=== PATIENT | female | born 1980 | race Caucasian/White ===

== ENCOUNTER → 2024-11-02 | Outpatient (CLI) | payer SELFPAY ==
--- NOTE | 2024-11-02 15:28 | BI_ITS ---
EXAM: SCRN MAMM (CAD)W/JENS BILAT DATE: 11/02/2024 CLINICAL HISTORY: F, Age 44 y/o , SCREENING Grandmother with breast cancer. BREAST CANCER RISK ASSESSMENT: Not assessed. TECHNIQUE: Bilateral screening digital breast tomosynthesis with 2D and 3D images. Computer aided detection. COMPARISON: Baseline examination. FINDINGS: TISSUE DENSITY: The breast tissue is extremely dense which lowers the sensitivity of mammography. Bilateral Breast Mammographic Findings: No significant masses, calcifications or other abnormalities are identified. BI/SCRN MAMM (CAD)W/JENS BILAT IMPRESSION: OVERALL FINAL ASSESSMENT: BIRADS 1 NEGATIVE RECOMMENDATION: Routine annual follow-up in 1 Year A letter with findings and recommendations will be mailed to the patient. Reading Location: [id number]
== END | disposition home or self-care (01) ==
PROVIDERS: PCP Family Medicine; Referring Provider Family Medicine; Visit Provider Family Medicine
DX: Z12.31 Encounter for screening mammogram for malignant neoplasm of breast (principal)
CPT/HCPCS: 77063; 77067

== ENCOUNTER 2024-12-15 07:00 | Day surgery (SDC) | payer SELFPAY ==
[2024-12-15] VITALS (8 sets, daily range): BP systolic 81–110; BP diastolic 45–75; PULSE 60–85; RESP 16–17; TEMP 36.1–36.3; O2SAT 98–100; BMI 21.7
--- OUTSIDE RECORDS SUMMARY | 2024-12-15 07:09 | XMS RPT_ITS | CCD ---
Author Organization [facility] Care Team Providers Care Salesperson Handbags Name Role Phone ALEX CANOI Attending Unavailabl e Unavailable Primary Care Provider Unavailabl e Rocky WATKINS, Cl Primary Care Provider Rocky WATKINS, Dr. [place] Primary Care Provider Rocky WATKINS, Dr. [place] Attending Provider [phone] Rocky WATKINS, Dr. [place] Referring Provider [phone] Hidalgo, Cl Referring Unavailable Robotham, Blanca Attending Unavailable Hidalgo, Cl Primary Care Unavailable Hidalgo, Cl Referring Unavailable Hidalgo, Cl Primary Care Unavailable Hidalgo, Cl Attending Unavailable HIDALGO, CL Attending Unavailable HIDALGO, CL Referring Unavailable HIDALGO, CL Primary Care Unavailable HIDALGO, CL Attending Unavailable HIDALGO, CL Referring Unavailable HIDALGO, CL Primary Care Unavailable HIDALGO, CL Attending Unavailable HIDALGO, CL Referring Unavailable HIDALGO, CL Primary Care Unavailable YEROPOLI, SEVASTI K Attending Unavailable HIDALGO, CL Primary Care Unavailable YEROPOLI, SEVASTI K Attending Unavailable HIDALGO, CL Primary Care Unavailable SHEETS, ANASTACIA Attending Unavailable HIDALGO, CL Primary Care Unavailable HIDALGO, CL Attending Unavailable HIDALGO, CL Referring Unavailable HIDALGO, CL Primary Care Unavailable Allergies Allergy Classification Reported Allergen(s) Allergy Type Date of Onset Reaction(s) Facility (4 sources) Sulfonamides (Antibiotic); Translations: [SULFA (SULFONAMIDE ANTIBIOTICS)] Propensity to adverse reactions to drug (disorder) 5 Rash [facility] Other [facility] (8 sources) Sulfonamides (Antibiotic) Drug Allergy 5 Hives, Rash [facility] Medications Current Medications Medication Drug Class(es) Dates Sig (Normalized) Sig (Original) doxycycline monohydrate 100 mg oral tablet (2 sources) Tetracycline-clas s Drug Start: 03-13-2024 End: 03-20-2024 take 1 tablet by mouth twice daily doxycycline monohydrate 100 mg tablet Take 1 tablet by mouth two times a day for 7 days. 14 tablet 03/13/2024 03/20/2024 Active Problems Problem Classification Problem Date Documented Date Episodic/Chronic Fracture of upper limb (1 source) Unspecified fracture of lower end of right humerus, initial encounter for closed fracture; Translations: [Elbow fracture, right] Onset: 03-13-2024 Episodic Genitourinary symptoms and ill-defined conditions (8 sources) Genuine stress incontinence; Translations: [Stress incontinence (female) (male)] Onset: 10-04-2024 10-02-2024 Chronic Menstrual disorders (1 source) Irregular periods; Translations: [Irregular menstruation, unspecified] 12-08-2024 Chronic Other female genital disorders (2 sources) Postcoital bleeding; Translations: [Postcoital and contact bleeding] 10-28-2024 Chronic Other female genital disorders (2 sources) Postcoital and contact bleeding; Translations: [Postcoital and contact bleeding] Onset: 10-28-2024 Chronic Other female genital disorders (2 sources) Disorder of uterine cervix; Translations: [Noninflammatory disorder of cervix uteri, unspecified] 10-28-2024 Episodic Other female genital disorders (1 source) Lump of cervix; Translations: [Other specified noninflammatory disorders of cervix uteri] 12-08-2024 Episodic Other female genital disorders (2 sources) Noninflammatory disorder of cervix uteri, unspecified; Translations: [Noninflammatory disorder of cervix uteri, unspecified] Onset: 10-28-2024 Episodic Other screening for suspected conditions (not mental disorders or infectious disease) (5 sources) Patient encounter status; Translations: [Encounter for screening mammogram for malignant neoplasm of breast] Onset: 10-28-2024 10-28-2024 Episodic Unclassified (2 sources) Surgical Consult; Translations: [Surgical Consult] Onset: 12-06-2024 Results Test Name Value Interpretation Reference Range Facility 36on 12-14-2024 36 Surgery scheduled . Sent Tracksmith message with all appts/info. Spoke w/ pt to confirm. [facility] 36on 12-13-2024 36 Spoke to pt, schedul ing in process. [facility] 36 Message released to patient as written. Patient's further questions if applicable: Patient returning call regarding surgery scheduling. Patient requesting call back. Please Advise Were all questions from office addressed or relayed to the patient from encounter: Yes [facility] 36 LMTC my direct line, will follow in surgery orders. [facility] 36on 12-08-2024 36 Surgery Orders just rec'd today from Dr. Castellanos. Pt is on my list for scheduling. Will contact pt for scheduling. [facility] 36 Name of caller: Mikayla Richardson Contact phone number: [phone] Relationship to Patient: patient Provider: Dr. Castellanos Practice: [facility] Chief Complaint/Reason for Call: Pt stated that at the appointment on 12/06/2024 the provider discussed surgery for a polypectomy. Pt is requesting a call back to schedule surgery. Please advise. Best time of day caller can be reached: Any Patient advised that office/PCP has 24-48 business hours to return their call: Yes [facility] Office Visiton 12-06-2024 Follow-up visit [id number] Emerald Richardson 1980 F Date Provider Department Center 12/06/2024 [id number] CASTELLANOS MG [facility] OB [facility] OB Offi Family History Problem Relation Age of Onset Stroke Paternal Grandfather Heart disease Maternal Grandfather Hypertension Maternal Grandfather Heart failure Father Hypertension Mother Thyroid disease Mother Other Other Comments: No family hx of MM. Family Status - Relation Status Age at Paternal Grandfather Maternal Grandfather Father Alive Mother Alive Other Level of Service:59549 NC OFFICE/OUTPATIENT ESTABLISHED LOW MDM 20 MIN Reason for Visit and Comments: Surgical Consult [868] [facility] Progress Noteon 12-06-2024 Progress Note Emerald Richardson 12/06/2024 44 y.o. Chief Complaint Patient presents with Surgical Consult Primary Care Physician: Cl Hidalgo MD HPI: Emerald Richardson is a 44 y.o. female presents for consult. Patient had well woman appt last month with Dr. Hebert. Reported irregular and postcoital bleeding. Found to have cervical mass on exam. Had AUB in the past. Last US 2020 showed 10cm uterus with 1cm intramural fibroid. Medical History[1] Surgical History[2] Family History[3] OB History Para Term AB Living 4 4 4 4 SAB IAB Ectopic Multiple Live Births 4 # Outcome Date GA Lbr Ravi/2nd Weight Sex Type Anes PTL Lv 4 Term 05/2006 40w0d F Vag-Spont JAIRON 3 Term 09/2004 40w0d M Vag-Spont JAIRON 2 Term 10/2002 39w0d F Vag-Spont JAIRON 1 Term 07/2001 39w0d M Vag-Spont JAIRON MEDICATIONS: Current Medications[4] ALLERGIES: Allergies as of 12/06/2024 - Reviewed 12/06/2024 Allergen Reaction Noted Sulfa antibiotics Hives and Rash 05/04/2015 REVIEW OF SYSTEMS Review of Systems Genitourinary: Positive for menstrual problem and vaginal bleeding. Negative for pelvic pain and vaginal discharge. PHYSICAL EXAMINATION: BP 97/62 Pulse 71 Wt 140 lb (63.5 kg) BMI 22.60 kg/m? Physical Exam Constitutional: General: She is not in acute distress. Appearance: Normal appearance. She is not ill-appearing, toxic-appearing or diaphoretic. HENT: Head: Normocephalic and atraumatic. Nose: Nose normal. Eyes: Extraocular Movements: Extraocular movements intact. Conjunctiva/sclera: Conjunctivae normal. Pupils: Pupils are equal, round, and reactive to light. Pulmonary: Effort: Pulmonary effort is normal. No respiratory distress. Chest: Breasts: Antwon Score is 5. Abdominal: Palpations: Abdomen is soft. Genitourinary: General: Normal vulva. Antwon stage (genital): 5. Labia: Right: No rash, tenderness, lesion or injury. Left: No rash, tenderness, lesion or injury. Urethra: No prolapse, urethral swelling or urethral lesion. Vagina: Normal. Cervix: No cervical motion tenderness. Musculoskeletal: Right lower leg: No edema. Left lower leg: No edema. Lymphadenopathy: Cervical: No cervical adenopathy. Upper Body: Right upper body: No supraclavicular or axillary adenopathy. Left upper body: No supraclavicular or axillary adenopathy. Skin: General: Skin is warm and dry. Coloration: Skin is not jaundiced. Neurological: General: No focal deficit present. Mental Status: She is alert and oriented to person, place, and time. Psychiatric: Mood and Affect: Mood normal. Behavior: Behavior normal. Thought Content: Thought content normal. Judgment: Judgment normal. ASSESSMENT: Diagnosis Plan 1. PCB (post coital bleeding) 2. Cervical mass PLAN: - Mass looks benign in appearance, suspect either cervical polyp or fibroid. Given size I recommended removal under anesthesia. We discussed pursing hysteroscopy at the same time to evaluate endometrial lining. Counseled on procedure and risks such as infection, bleeding, damage to visceral/vascular structures, and uterine perforation requiring conversion to more invasive procedure. All of her questions answered to the best of my ability [1] History reviewed. No pertinent past medical history. [2] Past Surgical History: Procedure Laterality Date ANKLE SURGERY Right 2020 [3] Family History Problem Relation Name Age of Onset Stroke Paternal Grandfather Heart disease Maternal Grandfather Hypertension Maternal Grandfather Heart failure Father Hypertension Mother Thyroid disease Mother Other (83871) Other No family hx of MM. [4] No current outpatient medications on file. No current facility-administered medications for this visit. Normal [facility] Progress Note A cake knocker was offe red to be present during her exam. The patient: declined Pt here for surgical consult for due to polyp. She is having abnormal bleeding. Normal [facility] Progress Noteon 11-10-2024 Progress Note Emerald Richardson 11/10/2024 44 y.o. Chief Complaint Patient presents with Procedure Cervical Bx HPI: HPI 44 y.o. here for cervical biopsy She has been having postcoital bleeding Menses are monthly but will have spotting starting 1 week prior 2024 pap and HPV negative Narrative & Impression History ------- Age: 41 LMP: 05/11/21 Day Of Cycle: 14 Hx Comments Non latex cover used. Uterus ------ Uterus: Present Position: Anteverted Size (cm) L: 10.42 W: 7 H: 5.9 Description: There is a hypoechoic mass in the uterine parenchyma. This most likely represents a fibroid. Myomas ------ Site L(cm) W(cm) D(cm) Location Posterior left body 0.93 1.01 0.72 Intramural Blood Flow RI PI Comments Endometrium Comment: The endometrial complex measures 10.14 mm. See comments below. Cervix ------ Multiple cervical cysts are noted. [place] No free fluid was visualized Right Ovary Status: Normal Size (cm) L: 3.1 W: 2.49 H: 1.63 Vol.(ml): 6.59 Left Ovary Status: Visualized Size (cm) L: 4.68 W: 2.93 H: 2.85 Vol.(ml): 20.46 Comment: The left ovary has a 2.36 x 1.82 x 2.19 cm cyst with a 1.27 x 1.11 x 1.19 cm daughter cyst. Comments -------- Dr. Hebert inserted a Unisem catheter through the cervical os. Sterile saline was injected under direct ultrasound visualization. The endometrial cavity distended well and revealed a normal appearing lining. The anterior wall = 5 mm, posterior wall = 4.5 mm. IMPRESSION: Impression During SIS, the endometrial cavity distended well and revealed a normal appearing lining. The anterior wall = 5 mm, posterior wall = 4.5 mm. Probable uterine fibroid. The left ovary has a 2.36 x 1.82 x 2.19 cm cyst with a 1.27 x 1.11 x 1.19 cm daughter cyst. Clinical correlation is recommended. The patient is scheduled to see Dr. Hebert following ultrasound. PMH: has no past medical history on file. PHYSICAL EXAM Vitals: 11/10/24 1009 BP: 92/60 Pulse: 73 Body mass index is 22.11 kg/m?. Physical Exam Constitutional: Appearance: Normal appearance. HENT: Head: Normocephalic and atraumatic. Pulmonary: Effort: Pulmonary effort is normal. Genitourinary: Neurological: Mental Status: She is alert and oriented to person, place, and time. Psychiatric: Mood and Affect: Mood normal. Behavior: Behavior normal. ASSESSMENT/PLAN Emerald was seen today for procedure. Diagnoses and all orders for this visit: Cervix abnormality (Primary) - Tissue exam Discussed polyp removal, will await path and then have consult with PLASTICS TOOLING ENGINEER aprylron Normal [facility] Progress Note ?A cake knocker was off ered to be present during her exam. The patient: Declined. Normal [facility] Progress Noteon 11-08-2024 Progress Note [facility] [place] [id number] [place] [address] Dept: [phone] Dept PHYSICAL THERAPY TREATMENT Pelvic Health Patient Name: Emerald Richardson : 1980 Date of Service: 11/08/2024 Referring Provider: Cl Hidalgo MD Visit #: 4 Diagnosis: Stress incontinence (female) (male) Mechanism of injury: Pt reports her UI has been gradual in the last couple of years. Pt notes running could cause UI. Gradual progression of UI with coughing/sneezing, running, jumping, mild urge UI. Pt denies pain with urination or BM or sexual activity Patient Preferences: Prabha Precautions/Red Flags: None Subjective Pt states things are going well and she is doing more Kegel's. Pt states she feels maybe less UI with less occurences. Nocturia: 0 x /night, day time frequency every 2 hours, but increased with bladder irritants/coffee Compliance with HEP: Yes Objective Objective measurements not taken today. Treatment Therapeutic Activity # of Activities: 4 Therapeutic Activity 1: diaphragmatic breathing 11/08/24: Pt is independent Activity 1 Comment: Pt to work on triggers Therapeutic Activity 2: PF Strengthening 11/08/24: Progressed to combination Kegel Activity 2 Comment: Progressed to Combination & Advanced Kegel's to improve co-ordination and response time of PF mm's, maximizing incorporation of slow & fast twitch mm fibers for improved function to reduce /eliminate UI. Verbal & written information provided with demonstration in clinic. Therapeutic Activity 3: Core re-educaitonal exercises 11/08/24 progressed Activity 3 Comment: Single Bridges PPT W/ single august, blue T-band hip ER. 3 x 10 reps performed in clinic today. updated med bridge Therapeutic Activity 4: Bladder ol-mnopfaid-sz to work on day time urinary urgency11/08/24 every 2 hours , but coffee is a bladder irritant Activity 4 Comment: 11/08/24 Pt feels her UI is more trigger related recently than activity. Home Exercise Program: Progressed home exercise program Assessment Skilled physical therapy interventions utilized to improve patient?s impairments and work towards established goals. Patient response to treatment: Pt is making progress with normalized bladder frequency, reducing UI with stressors, but having UI with triggers. Patient will benefit from continued physical therapy to address PF/bladder dysfunctions to eliminate UI and improve overall quality of life. The rationale for today?s treatment was explained to the patient. Verbal cues were provided for correct form with all exercises. Advised patient to continue with Home Exercise Program (HEP). Goals General/Ortho Patient will be independent with HEP. (Progressing) Start: 10/02/24 Expected End: 01/01/25 Patient will increase strength in core to 4/5 to be able to improve PF function to eliminate UI (Progressing) Start: 10/02/24 Expected End: 01/01/25 Pelvic Health Pt will reduce summary score on gender appropriate NIH-CPSI to 6/45 to improve patient's perceived quality of life (Progressing) Start: 10/02/24 Expected End: 01/01/25 Pt will reduce use of pads to 0 pads per day (Progressing) Start: 10/02/24 Expected End: 01/01/25 Pt will reduce urinary incontinence to complete elimination (Progressing) Start: 10/02/24 Expected End: 01/01/25 Plan Plan for next session: Progress Kegel and core exercises as tolerated. Pt to focus on advanced Kegel's, bladder re-training/trigger responses and core and follow up in 4 weeks on 12/06/24. Time Entry Total Treatment Time Start Time: 1451 Stop Time: 1519 Time Calculation (min): 28 min PT Therapeutic Procedures Time Entry Therapeutic Activity Time Entry: 28 Reyna Wright, PT [facility] 36on 11-04-2024 36 LM on for pt to c all back. Will send Tracksmith message. [facility] 36 ----- Message from Elizabeth Hebert MD sent at 11/04/2024 1:25 PM EDT ----- Patient is schedule for cervical biopsy in 2 weeks . the pap came back today and is negative. If she is able to come in next Friday at 10 oclock, please move her appointment to next week. Thanks! ----- Message ----- From: Epic Automated UserElizabeth Sent: 11/01/2024 2:11 PM EDT To: Elizabeth Hebert MD [facility] Breast imaging reportOrdered By: Marko Esquivel on 11-02-2024 Study report [facility] [address] [place] [address] SCRN MAMM (CAD)W/JENS BILAT MR#: [id number] Acct: [id number] Name: EMERALD RICHARDSON Rep #: [id number] : 1980 F 44 From: Jani Esquivel MD PCP: Dr. Cl Hidalgo MD Status: REG Noah HILL Study:SCRN MAMM (CAD)W/JENS BILAT Date of Exa m: 11/02/24 Exam# [id number] Ordering Dr: Ra hannah Hidalgo MD EXAM: SCRN MAMM (CAD)W/JENS BILAT DATE: 11/02/2024 CLINICAL HISTORY: F, Age 44 y/o , SCREENING Grandmother with breast cancer. BREAST CANCER RISK ASSESSMENT: Not assessed. TECHNIQUE: Bilateral screening digital breast tomosynthesis with 2D and 3D images. Computeraided detection. COMPARISON: Baseline examination. FINDINGS: TISSUE DENSITY: The breast tissue is extremely dense which lowers the sensitivity of mammography. Bilateral Breast Mammographic Findings: No significant masses, calcifications or other abnormalities are identified. BI/SCRN MAMM (CAD)W/JENS BILAT IMPRESSION: OVERALL FINAL ASSESSMENT: BIRADS 1 NEGATIVE RECOMMENDATION: Routine annual follow-up in 1 Year A letter with findings and recommendations will be mailed to the patient. Reading Location: [id number] CC: Dr. Cl Hidalgo MD ~ Automobile Parts Assembler: Signed [facility] SCRN MAMM (CAD)W/JENS BILATo n 11-02-2024 SCRN MAMM (CAD)W/JENS BILAT [facility] Services [address] [place] [address] SCRN MAMM (CAD)W/JENS BILAT MR#: [id number] Acct: [id number] Name: EMERALD RICHARDSON Rep #: [id number] : 1980 F 44 From: Marko booth MD PCP: Dr. Cl Hidalgo MD Status: REG CLI Study: SCRN MAMM (CAD)W/JENS BILAT Date of Exam: 10/21 09/14 Exam# [id number] Ordering Dr: Cl Hidalgo MD EXAM: SCRN MAMM (CAD)W/JENS BILAT DATE: 11/02/2024 CLINICAL HISTORY: F, Age 44 y/o , SCREENING Grandmother with breast cancer. BREAST CANCER RISK ASSESSMENT: Not assessed. TECHNIQUE: Bilateral screening digital breast tomosynthesis with 2D and 3D images. Computer aided detection. COMPARISON: Baseline examination. FINDINGS: TISSUE DENSITY: The breast tissue is extremely dense which lowers the sensitivity of mammography. Bilateral Breast Mammographic Findings: No significant masses, calcifications or other abnormalities are identified. BI/SCRN MAMM (CAD)W/JENS BILAT IMPRESSION: OVERALL FINAL ASSESSMENT: BIRADS 1 NEGATIVE RECOMMENDATION: Routine annual follow-up in 1 Year A letter with findings and recommendations will be mailed to the patient. Reading Location: [facility] CC: Dr. Cl Hidalgo MD Automobile Parts Assembler: Signed Normal [facility] Office Visiton 10-28-2024 Follow-up visit [id number] Emerald Richardson 1980 F Date Provider Department Center 10/28/2024 [id number] HEBERT K [facility] Offi Family History Problem Relation Age of Onset Stroke Paternal Grandfather Heart disease Maternal Grandfather Hypertension Maternal Grandfather Heart failure Father Hypertension Mother Thyroid disease Mother Other Other Comments: No family hx of MM. Family Status - Relation Status Age at Paternal Grandfather Maternal Grandfather Father Alive Mother Alive Other Level of Service:66741 NC INITIAL PREVENTIVE MEDICINE NEW PATIENT 40-64YRS Reason for Visit and Comments: Annual Exam [83] [facility] Progress Noteon 10-28-2024 Progress Note Emerald Richardson 10/28/2024 44 y.o. Primary Care Physician: Cl Hidalgo MD Chief Complaint Patient presents with Annual Exam HPI : Emerald Richardson is a 44 y.o. female here for annual exam Gynecologic History: Patient's last menstrual period was 10/18/2024 (exact date). Menses occur regular every 28-30 days. Flow is moderate, sometimes heavy flow. Intermenstrual bleeding: Yes- postcoital bleeding normal endometrium < 1 cm IM fibroid Plan was for colposcopy Dysmenorrhea: none Contraception: Condoms OB History Para Term AB Living 4 4 4 4 SAB IAB Ectopic Multiple Live Births 4 # Outcome Date GA Lbr Ravi/2nd Weight Sex Type Anes PTL Lv 4 Term 05/2006 40w0d F Vag-Spont JAIRON 3 Term 09/2004 40w0d M Vag-Spont JAIRON 2 Term 10/2002 39w0d F Vag-Spont JAIRON 1 Term 07/2001 39w0d M Vag-Spont JAIRON Preventative Health Testing: Date of Last Pap Smear: 02/2020 neg pap and HPV Abnormal Pap Smear History: none Date of Last Mammogram: scheduled Date of Last Colonoscopy: scheduled ray _ History reviewed. No pertinent past medical history. Past Surgical History: Procedure Laterality Date ANKLE SURGERY Right 2020 Family History Problem Relation Name Age of Onset Stroke Paternal Grandfather Heart disease Maternal Grandfather Hypertension Maternal Grandfather Heart failure Father Hypertension Mother Thyroid disease Mother Other ([id number]) Other No family hx of MM. Social History Socioeconomic History Marital status: Spouse name: Not on file Number of children: Not on file Years of education: Not on file Highest education level: Not on file Occupational History Not on file Tobacco Use Smoking status: Never Smokeless tobacco: Never Substance and Sexual Activity Alcohol use: Yes Alcohol/week: 2.0 standard drinks of alcohol Drug use: Not on file Sexual activity: Yes Partners: Male control/protection: Condom Male Other Topics Concern Not on file Social History Narrative Merged History Encounter Social Drivers of Health Financial Resource Strain: Low Risk (10/28/2024) Overall Financial Resource Strain (CARDIA) Difficulty of Paying Living Expenses: Not hard at all Food Insecurity: No Food Insecurity (10/28/2024) Hunger Vital Sign Worried About Running Out of Food in the Last Year: Never true Ran Out of Food in the Last Year: Never true Transportation Needs: No Transportation Needs (10/28/2024) PRAPARE - Transportation Lack of Transportation (Medical): No Lack of Transportation (Non-Medical): No Physical Activity: Sufficiently Active (10/28/2024) Exercise Vital Sign Days of Exercise per Week: 5 days Minutes of Exercise per Session: 30 min Stress: No Stress Concern Present (10/28/2024) [employer] [place] [employer] - Occupational Stress Questionnaire Feeling of Stress : Not at all Social Connections: Socially Integrated (10/28/2024) Social Connection and Isolation Panel [NHANES] Frequency of Communication with Friends and Family: More than three times a week Frequency of Social Gatherings with Friends and Family: More than three times a week Attends Sabianist Services: More than 4 times per year Active Member of Clubs or Organizations: Yes Attends Club or Organization Meetings: More than 4 times per year Marital Status: Intimate Partner Violence: Not on file Housing Stability: Low Risk (10/28/2024) Housing Stability Vital Sign Unable to Pay for Housing in the Last Year: No Number of Times Moved in the Last Year: 0 Homeless in the Last Year: No MEDICATIONS: No current outpatient medications on file. No current facility-administered medications for this visit. ALLERGIES: Allergies as of 10/28/2024 - Reviewed 10/28/2024 Allergen Reaction Noted Sulfa antibiotics Hives and Rash 05/04/2015 REVIEW OF SYSTEMS: CONSTIUTIONAL: No weight change or fatigue CV: No Chest Pain with Exertion, Palpitations, Syncope, Edema, Arrhythmia RESPIRATORY: No SOB or Cough, BREAST: No breast abnormalities or lumps GI: No Indigestion, Heartburn, Nausea, vomiting, Diarrhea, Constipation,Bloating or Bowel Changes; No Bloody Stools or melena : No Dysuria, Hematuria or Nocturia. No Urinary Incontinence or Vaginal Discharge, NEURO: No CVA, Migraines,Seizure Hx, or Limb Weakness DERM: No Rash, Itching, Mole Changes or Cancer PSYCH: No Depression, Homicidal thoughts,suicidal thoughts, or anxiety MUSCULOSKELETAL: No Arthralgia or Arthritis HEME and LYMPH :No Lymphoma, Von Willebrand's, Hemophillia or Bleeding History PHYSICAL EXAM: Vitals: 10/28/24 0822 BP: 96/64 Pulse: 81 Weight: 140 lb (63.5 kg) Height: 5' 4 (1.626 m) Body mass index is 24.03 kg/m?. 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 EXTERNAL GENITALIA: normal female structures (more content not included)... Normal [facility] Progress Note ?A cake knocker was off ered to be present during her exam. The patient: declined Normal [facility] Progress Noteon 10-11-2024 Progress Note [facility] AT [address] [place] [address] Dept: [phone] Dept PHYSICAL THERAPY TREATMENT Pelvic Health Patient Name: Emerald Richardson : 1980 Date of Service: 10/11/2024 Referring Provider: Cl Hidalgo MD Visit #: 3 Diagnosis: Stress incontinence (female) (male) Mechanism of injury: Pt reports her UI has been gradual in the last couple of years. Pt notes running could cause UI. Gradual progression of UI with coughing/sneezing, running, jumping, mild urge UI. Pt denies pain with urination or BM or sexual activity Patient Preferences: Prabha Precautions/Red Flags: None Subjective Pt reports challenged with completing Kegel's in sitting and standing, easier in supine. Compliance with HEP: Yes Objective Objective measurements not taken today. Treatment Therapeutic Activity # of Activities: 4 Therapeutic Activity 1: diaphragmatic breathing 10/11/24: verbal review Therapeutic Activity 2: PF Strengthening 10/11/24: Progressed to endurance Kegel starting with 5 seconds and progressing to a 10 second hold. Pt challenged with Kegel in sitting and standing Activity 2 Comment: Quick Kegel: to improve PF awareness, increase blood flow and re-educate Pelvic Floor muscles for isloated contraction. Therapeutic Activity 3: Core re-educaitonal exercises Activity 3 Comment: Bridges W/ O UE support, PPT W/ TrA activation, Green T-band hip ER. 3 x 10 reps performed in clinic today.Discussed rational and importance of HEP for program carryover and maximal benefit of rehab. Patient demonstrated exercises to ensure proper technique and clinician provided verbal and written information. Exercises inputted into Med. Tim. Therapeutic Activity 4: Bladder [id number] to work on day time urinary urgency 10/11/24 working on 2 hours, but coffe and tea are bladder irritants Home Exercise Program: Progressed home exercise program Assessment Skilled physical therapy interventions utilized to improve patient?s impairments and work towards established goals. Patient response to treatment: Patient is making progress toward goals with compliance with HEP, reducing urinary frequency, increasing PF mm awareness. Pt still challenged with completing Kegel in sitting and standing. Pt able to demonstrate good TrA engagement with instructions. Pt appropriately challenged with exercises in clinic today Patient will benefit from continued physical therapy to address PF/bladder dysfunctions to eliminate stress UI and improve overall quality of life. The rationale for today?s treatment was explained to the patient. Verbal cues were provided for correct form with all exercises. Advised patient to continue with Home Exercise Program (HEP). Goals General/Ortho Patient will be independent with HEP. (Progressing) Start: 10/02/24 Expected End: 01/01/25 Patient will increase strength in core to 4/5 to be able to improve PF function to eliminate UI (Progressing) Start: 10/02/24 Expected End: 01/01/25 Pelvic Health Pt will reduce summary score on gender appropriate NIH-CPSI to 6/45 to improve patient's perceived quality of life (Progressing) Start: 10/02/24 Expected End: 01/01/25 Pt will reduce urinary frequency to voiding once every 2-4 hours each day to reduce disruptions to home and work activities (Progressing) Start: 10/02/24 Expected End: 01/01/25 Pt will reduce use of pads to 0 pads per day (Progressing) Start: 10/02/24 Expected End: 01/01/25 Pt will reduce urinary incontinence to complete elimination (Progressing) Start: 10/02/24 Expected End: 01/01/25 Plan Plan for next session: Progress Kegel & core exercises as tolerated. Pt to focus on endurance Kegel, core and bladder re-training principles and follow up in 3 weeks on 11/01/24 9:15 AM. Time Entry Total Treatment Time Start Time: 915 Reyna Wright, PT [facility] Progress Noteon 10-04-2024 Progress Note [facility] TH[facility]Y AT [place] [address] [place] [address] Dept: [phone] Dept PHYSICAL THERAPY TREATMENT Pelvic Health Patient Name: Emerald Richardson : 1980 Date of Service: 10/04/2024 Referring Provider: Cl Hidalgo MD Visit #: 2 Diagnosis: Stress incontinence (female) (male) Mechanism of injury: Pt reports her UI has been gradual in the last couple of years. Pt notes running could cause UI. Gradual progression of UI with coughing/sneezing, running, jumping, mild urge UI. Pt denies pain with urination or BM or sexual activity Patient Preferences: Prabha Precautions/Red Flags: None Subjective Pt working on urge suppression and notes able to hold better. Compliance with HEP: Yes Objective Pelvic Floor Assessment Special tests Skin observation: healthy & pink Vaginal Wall Weakness Anterior wall: mild Posterior wall: none Observations: with supine bulge activity Pelvic Floor Muscle testing Modified Laycock: Layer 1: 2/5 Layer 2: 2/5 Layer 3: 1/5 Endurance: 2 seconds Contraction quality: Fair: pt able to recruit all 3 PF mm layers, but moderate weakness with decreased strength & endurance noted. Relaxation quality: good Voluntary excursion quality: good Resting position: WNL Palpation Myofascial mobility: WNL Soft tissue: non tender ESTEBAN Tenderness 0-no tenderness 1-complaint of pain 2-Pain w/wincing 3-Pain w/ withdrawal 4- Unable to palpate Guarding 0-No guarding 1-Mild 2- Moderate 3-Severe Spasm 0-No spasm 1-Mild 2-Moderate 3-Severe Mobility 0-No change 1-Mild 2-Moderate 3-Severe Muscles/Soft tissue Left Right Left Right Left Right Left Right Bulbocavernosus 0 0 0 0 0 0 0 0 Coccygeus 0 0 0 0 0 0 0 0 Iliococcygeus 0 0 0 0 0 0 0 0 Ischiocavernosus 0 0 0 0 0 0 0 0 Levator Ani 0 0 0 0 0 0 0 0 Obturator Internus 0 0 0 0 0 0 0 0 Pelvic Clock 12-3 0 X X X X X X X Pelvic Clock 3-6 0 X X X X X X X Pelvic Clock 6-9 X 0 X X X X X X Pelvic Clock 9-12 X 0 X X X X X X Perineal body 0 0 X X X X 0 0 Pubococcygeus 0 0 0 0 0 0 0 0 Puborectalis 0 0 0 0 0 0 0 0 Transverse Perineal 0 0 0 0 0 0 0 0 Transverse Perineal- Deep 0 0 0 0 0 0 0 0 Bony Structures: 0 0 X X X X X X Treatment Therapeutic Activity # of Activities: 4 Therapeutic Activity 1: diaphragmatic breathing Activity 1 Comment: Diaphragmatic Breathing: Educated patient and discussed rational, use, indications and benefits to: reduce bladder anxiety, stretch/relax PF, reset vagal/ vagus nervous system, lower HR & BP and improve overall lung capacity. Verbal and written information provided with patient demonstration to ensure proper technique Therapeutic Activity 2: PF Strengthening ( add core strengthening next session) Activity 2 Comment: Quick Kegel: to improve PF awareness, increase blood flow and re-educate Pelvic Floor muscles for isloated contraction. Therapeutic Activity 3: Intenral PF mm assessment-10/04/24 completed. See objective section of notes Activity 3 Comment: Initiate next session:Pelvic Floor Assessment: Discussed rational, informed consent*, completion & findings explained. (*Consent for pelvic floor assessment, muscle testing and treatment: Patient received education regarding pelvic floor physical therapy assessment/treatment with use of 3D pelvic floor model for education on relevant pelvic floor anatomy. Assessment and treatment may include an external or internal (visual and/or digital/tactile) approach for assessment/treatment of perineal tissues, pelvic floor and pelvic girdle muscles. Patient provided freely given, reversible, informed, enthusiastic and specific consent for internal pelvic floor muscle assessment and treatment today. Patient understands that they have control of the assessment and treatment, having the opportunity to stop treatment at any time. Patient also provided written consent at initial evaluation. ) Therapeutic Activity 4: Bladder ne-[id number] to work on day time urinary urgency 10/04/24 verbal review and pt noted reduced urinary frequency with urge suppression techniques Activity 4 Comment: Bladder Re-training: Educated patient and discussed Night time strategies, urge suppression. Discussed it takes at least 8 weeks to form a new habit and/or break an old habit. Discussed it can take 8 weeks to re-train muscles and can take 16-20 weeks to hypertrophy muscles. Discussed bladder re-training is a process involving re-programing brain>bladder connections, strengthening PF muscles and habit changes. Pt with verbal understanding and acknowledgement. Verbal & written information provided. Home Exercise Program: Progressed home exercise program Assessment Skilled physical therapy interventions utilized to improve patient?s impairments and work towards established goals. Patient response (more content not included)... Normal [facility] Progress Noteon 10-02-2024 Progress Note [facility] AT [address] [place] [address] Dept: [phone] Dept PHYSICAL THERAPY EVALUATION Pelvic Health Patient Name: Emerald Richardson : 1980 Date of Service: 10/02/2024 Referring Provider: Cl Hidalgo MD Visit #: 1 Diagnosis: Stress incontinence (female) (male) General Information Mechanism of injury: Pt reports her UI has been gradual in the last couple of years. Pt notes running could cause UI. Gradual progression of UI with coughing/sneezing, running, jumping, mild urge UI. 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 PSHX: Emerald has no past surgical history on file. Have you experienced any anxiety or depression?: No Have you experienced thoughts of self-harm or suicidal thoughts?: No Social Drivers of Health Reviewed: Yes Physician follow-up appointment?: No Subjective Chief Complaint: UI Pain: Current: 0/10 Best: 0/10 Worst: 0/10 Symptoms Aggravated by: running, jumping, coughing , sneezing, urgency Symptoms Relieved by: stopping activity Prior Level of Function: Independent Current Level of Function: independent but limited d/t UI Patient?s Stated Goal: Eliminate UI Additional Specialty Information: PELVIC HEALTH Hx and sx : ; vaginal delivery Urinary Sx Incontinence: mixed a few drops Post-void dribble: No ?? Maybe sometimes Urgency: Yes Aggravating/alleviating factors: coughing/sneezing, jumping, running Voiding frequency: Every 1 hour Nocturia: No , 0/night Sensation of incomplete bladder emptying: Yes Pain associated with bladder and/or voiding: No Use of Protection: Type: panti liner Quantity: 1 x/ day Bowel sx Constipation: No Straining: No Fecal incontinence: No Dietary Water intake: 80+ fl oz/day Dietary irritants: Coffee: 16 oz/day, Tea-iced: 16 oz/day, Sparkling water: 16 oz/day or [place]ucha Questionnaire: NIH-CPSI: female Score: Objective Observations Functional mobility: Independent Ortho screen Posture Pelvic alignment: Pt demonstrating good pelvic alignment Lumbar ROM: WNL Hip ROM: WNL Palpation: Non tender external PF region LQ Strength L R HIP Flexion 5/5 5/5 Extension 5/5 5/5 Abduction 5/5 5/5 KNEE Flexion 5/5 5/5 Extension 5/5 5/5 ANKLE Dorsiflexion 5/5 5/5 Plantarflexion NT/5 NT/5 CORE 3/5- decreased TrA activation Flexibility: LEFT RIGHT Hip Adductors WNL WNL Hip External Rotators MILD MILD Iliopsoas WNL WNL Hamstrings MILD MILD Assessment Emerald is a 44 y.o. patient who presents to PT with a diagnosis of stress UI. Pt demonstrates PF/bladder dysfunctions, decreased core strength, contributing to UI, urinary urgency impairing function and reducing quality of life. . The patient would benefit from skilled physical therapy to address decreased strength, decreased range of motion, soft tissue impairment, impaired functional activities, and PF & bladder dysfunctions . Evaluation complexity is low secondary to: patient has 1-2 personal factors and/or comorbidities that will affect plan of care, therapy will be addressing 3 or more elements, and clinical presentation is evolving. Body Systems Affected: musculoskeletal and neuromuscular Rehab Potential: Good Learning Preferences: demonstration, explanation, performance, and printed materials Barriers to Rehab: chronicity and duration of symptoms Goals General/Ortho Patient will be independent with HEP. (Initiated) Start: 10/02/24 Expected End: 01/01/25 Patient will increase strength in core to 4/5 to be able to improve PF function to eliminate UI (Initiated) Start: 10/02/24 Expected End: 01/01/25 Pelvic Health Pt will reduce summary score on gender appropriate NIH-CPSI to 6/45 to improve patient's perceived quality of life (Initiated) Start: 10/02/24 Expected End: 01/01/25 Pt will reduce urinary frequency to voiding once every 2-4 hours each day to reduce disruptions to home and work activities (Initiated) Start: 10/02/24 Expected End: 01/01/25 Pt will reduce use of pads to 0 pads per day (Initiated) Start: 10/02/24 Expected End: 01/01/25 Pt will reduce urinary incontinence to complete elimination (Initiated) Start: 10/02/24 Expected End: 01/01/25 Plan Frequency and Duration: 1/wk for 12 weeks Therapeutic Contents: client education, home exercise program, manual therapy techniques, neuromuscular re-education, sensory re-education/desensitiza tion, therapeutic activities, modalities as needed, and bladder re-training Plan for next session: Complete internal PF mm assessment, progress Hep as tolerated and further education for optimal pelvic health Risks and (more content not included)... Normal [facility] CBC (H/H, RBC, INDICES, WBC, PLT)on 09-15-2024 Erythrocyte distribution width (RBC) [Ratio] 14.7 % Normal 11.0-15.0 [facility] Comment on above: Performed By: #### 1 069, 60661, 4520, 899 #### [facility] [address] Car Sales Associate: Emre Washington MD Hematocrit (Bld) [Volume fraction] 38.3 % Normal 35.0-45.0 [facility] Comment on above: Performed By: #### 1 879, 67558, 7600, 899 #### [facility] [address], [address] [place] [id number] Car Sales Associate: Emre Washington MD Hemoglobin (Bld) [Mass/Vol] 11.8 g/dL Normal 11.7-15.5 [facility] Comment on above: Performed By: #### 1 759, 61176, 7600, 899 #### [facility] of [place] [address] Car Sales Associate: Emre Washington MD MCH (RBC) [Entitic mass] 27.8 pg Normal 27.0-33.0 [facility] Comment on above: Performed By: #### 1 759, 10920, 0, 899 #### [facility] [place] [address] Car Sales Associate: Emre Washington MD MCHC (RBC) [Mass/Vol] 30.8 g/dL Low 32.0-36.0 [facility] Comment on above: Result Comment: For adults, a slight decrease in the calculated MCHC value (in the range of 30 to 32 g/dL) is most likely not clinically significant; however, it should be interpreted with caution in correlation with other red cell parameters and the patient's clinical condition. Performed By: #### 1 759, , 7599, 899 #### [facility] [place] [address] Car Sales Associate: Emre Washington MD MCV (RBC) [Entitic vol] 90.1 fL Normal 80.0-100.0 [facility] Comment on above: Performed By: #### 1 759, 11720, 7599, 899 #### [facility] [place] [address] Car Sales Associate: Emre Washington MD Platelet mean volume (Bld) [Entitic vol] 12.8 fL High 7.5-12.5 [facility] Comment on above: Performed By: #### 1 759, 68053, 7600, 899 #### [facility] [place] [address] Car Sales Associate: Emre Washington MD Platelets (Bld) [#/Vol] 206 10*3/uL Normal 140-400 [facility] Comment on above: Performed By: #### 1 759, 03331, 0, 899 #### [facility] of [address] [place] [address] Car Sales Associate: Emre Washington MD RBC (Bld) [#/Vol] 4.25 10*6/uL Normal 3.80-5.10 [facility] Comment on above: Performed By: #### 1 759, 26740, 7600, 899 #### [facility] of [address] , [address] [place] [address] Car Sales Associate: Emre Washington MD WBC (Bld) [#/Vol] 4.4 10*3/uL Normal 3.8-10.8 [facility] Comment on above: Performed By: #### 1 759, 82892, 7600, 899 #### [facility] of [address], [address] [place] [address] Car Sales Associate: Emre Washington MD [facility] 09-15-2024 Albumin [Mass/Vol] 4.1 g/dL Normal 3.6-5.1 [facility] Comment on above: Performed By: #### 1 759, 90510, 7600, 899 #### [facility] of [address], [address] [place] [address] Car Sales Associate: Emre Washington MD Albumin/Globulin [Mass ratio] 2.1 {ratio} Normal 1.0-2.5 [facility] Comment on above: Performed By: #### 1 759, 11851, 7600, 899 #### [facility] of [address], [address] [place] [address] Car Sales Associate: Emre Washington MD ALP [Catalytic activity/Vol] 38 U/L Normal 31-125 [facility] Comment on above: Performed By: #### 1 759, 95950, 7600, 899 #### [facility] of [place] [address] Car Sales Associate: Emre Washington MD ALT [Catalytic activity/Vol] 11 U/L Normal 6-29 [facility] Comment on above: Performed By: #### 1 759, 90917, 7600, 899 #### [facility] of [address], [address] [place] [address] Car Sales Associate: Emre Washington MD AST [Catalytic activity/Vol] 15 U/L Normal 10-35 [facility] Comment on above: Performed By: #### 1 759, 79780, 7600, 899 #### [facility] of [address], [address] [place] [address] Car Sales Associate: Emre Washington MD Bilirubin [Mass/Vol] 1.4 mg/dL High 0.2-1.2 [facility] Comment on above: Performed By: #### 1 759, 73432, 7600, 899 #### [facility] of [place] [address] Car Sales Associate: Emre Washington MD BUN/CREATININE RATIO SEE NOTE: Normal 6-22 [facility] Comment on above: Result Comment: Not Reported: BUN and Creatinine are within reference range. Performed By: #### 1 759, 82013, 7600, 899 #### [facility] of [address], [address] [place] [address] Car Sales Associate: Emre Washington MD Calcium [Mass/Vol] 8.9 mg/dL Normal 8.6-10.2 [facility] Comment on above: Performed By: #### 1 759, 70496, 7600, 899 #### [facility] of [place] [address] Car Sales Associate: Emre Washington MD Chloride [Moles/Vol] 108 mmol/L Normal 98-110 [facility] Comment on above: Performed By: #### 1 759, 03753, 7600, 899 #### [facility] of [place] [address] Car Sales Associate: Emer Washington MD CO2 [Moles/Vol] 25 mmol/L Normal 20-32 [facility] Comment on above: Performed By: #### 1 759, 19893, 7600, 899 #### [facility] of [place] [address] Car Sales Associate: Emre Washington MD Creatinine [Mass/Vol] 0.72 mg/dL Normal 0.50-0.99 [facility] Comment on above: Performed By: #### 1 759, 83561, 7600, 899 #### [facility] [place] [address] Car Sales Associate: Emre Washington MD GFR/1.73 sq M.predicted among non-blacks MDRD (S/P/Bld) [Vol rate/Area] 105 mL/min/{1.73_m2} Normal > OR = 60 [facility] Comment on above: Performed By: #### 1 759, 39098, 7600, 899 #### [facility] [place] [address] Car Sales Associate: Emre Washington MD Globulin (S) [Mass/Vol] 2.0 g/dL Normal 1.9-3.7 [facility] Comment on above: Performed By: #### 1 759, 63811, 7600, 899 #### [facility] [place] [address] Car Sales Associate: Emre Washington MD Glucose [Mass/Vol] 80 mg/dL Normal 65-99 [facility] Comment on above: Result Comment: Fasting reference interval Performed By: #### 1 759, 59528, 7600, 899 #### [facility] [place] [address] Car Sales Associate: Emre Washington MD Potassium [Moles/Vol] 4.0 mmol/L Normal 3.5-5.3 [facility] Comment on above: Performed By: #### 1 759, 02019, 7600, 899 #### [facility] [place] [address] Car Sales Associate: Emre Washington MD Protein [Mass/Vol] 6.1 g/dL Normal 6.1-8.1 [facility] Comment on above: Performed By: #### 1 459, 82757, 7600, 899 #### [facility] [place] [address] Car Sales Associate: Emre Washington MD Sodium [Moles/Vol] 139 mmol/L Normal 135-146 [facility] Comment on above: Performed By: #### 1 759, 48468, 7600, 899 #### [facility] [place] [address] Car Sales Associate: Emre Washington MD Urea nitrogen [Mass/Vol] 7 mg/dL Normal 7-25 [facility] Comment on above: Performed By: #### 1 759, 80577, 7600, 899 #### [facility] [place] [address] Car Sales Associate: Emre Washington MD LIPID PANEL, [facility] [place] 08-22 Cholesterol [Mass/Vol] 190 mg/dL Normal <200 [facility] Comment on above: Order Comment: 0 0 0 0 Performed By: #### 1 759, 24903, 7600, 899 #### [facility] [place] [address] Car Sales Associate: Emre Washington MD Cholesterol in HDL [Mass/Vol] 68 mg/dL Normal > OR = 50 [facility] Comment on above: Order Comment: 0 0 0 0 Performed By: #### 1 759, 78106, 7600, 899 #### [facility] [place] [address] Car Sales Associate: Emre Washington MD Cholesterol in LDL [Mass/Vol] 103 mg/dL High [facility] Comment on above: Order Comment: 0 0 0 0 Result Comment: Refe rence range: <100 Desirable range <100 mg/dL for primary prevention; <70 mg/dL for patients with CHD or diabetic patients with > or = 2 CHD risk factors. LDL-C is now calculated using the Dhruv calculation, which is a validated novel method providing better accuracy than the Friedewald equation in the estimation of LDL-C. Cornelio RIZVI et al. ILYA. 2013;310(19): 8374-7773 (http://education.[employer]/faq/CYC790) Performed By: #### 1 759, 50121, 7600, 899 #### [facility] [address], [address] [place] [address] Car Sales Associate: Emre Washington MD Cholesterol.total/ Cholesterol in HDL [Mass ratio] 2.8 {ratio} Normal <5.0 [facility] Comment on above: Order Comment: 0 0 0 0 Performed By: #### 1 759, 58464, 7600, 899 #### [facility] [address], [address] [place] [address] Car Sales Associate: Emre Washington MD NON HDL CHOLESTEROL 122 mg/dL (calc) Normal <130 [facility] Comment on above: Order Comment: 0 0 0 0 Result Comment: For patients with diabetes plus 1 major ASCVD risk factor, treating to a non-HDL-C goal of <100 mg/dL (LDL-C of <70 mg/dL) is considered a therapeutic option. Performed By: #### 1 759, 51953, 7600, 899 #### [facility] [place] [address] Car Sales Associate: Emre Washington MD Triglyceride [Mass/Vol] 99 mg/dL Normal <150 [facility] Comment on above: Order Comment: 0 0 0 0 Performed By: #### 1 759, 81999, 7600, 899 #### [facility] [address], [address] [place] [address] Car Sales Associate: Emre Washington MD TSHon 09-15-2024 TSH Qn 1.30 m[IU]/L Normal [facility] Comment on above: Result Comment: Refe rence Range > or = 20 Years 0.40-4.50 Ranges First trimester 0.26-2.66 Second trimester 0.55-2.73 Third trimester 0.43-2.91 Performed By: #### 1 759, 01375, 7600, 899 #### [facility] [address], [address] [place] [address] Car Sales Associate: Emre Washington MD [facility] 03-19-2024 [facility] HEALTHCARE Telephone (AGPOB1) -------- EMERALD RICHARDSON ([id number]) 1980 F Date Time Provider Department 03/19/24 TONEY CRAFT During your visit today, we recorded the following information about you: Peyton Doyle 03/19/2024 8:19 AM Signed Left message for patient to call office to schedule an appointment. Office number provided for return call. Peyton Doyle March 19, 2024 8:19 AM Allergies As of Date: 03/19/2024 Noted Allergy Reaction SULFA (SULFONAMIDE ANTIBIOTICS) 05/04/2015 2 - Rash Date Reviewed: 03/13/2024 Reviewed by: Varinder Suggs, RN - Fully Assessed Reason for Visit: Appointment [186] Prescriptions as of 03/19/2024 - doxycycline monohydrate 100 mg tablet Take 1 tablet by mouth two times a day for 7 days. Problem List As Of Date: 03/19/2024 (None) Encounter Status:Closed by PEYTON DOYLE on 03/19/24 [facility] 03-15-2024 [facility] Telephone (AGPOB1) -------- EMERALD RICHARDSON ([id number]) 1980 F Date Time Provider Department 03/15/24 TONEY CRAFT During your visit today, we recorded the following information about you: Peyton Doyle 03/15/2024 1:45 PM Addendum Left message for patient to call office to schedule an appointment. Office number provided for return call. Peyton Doyle March 15, 2024 1:45 PM Nell SHERIDAN Thanks, MARIA ELENA Would you like to see this patient, let me know and I will gladly get them scheduled. Thank you, Peyton Doyle March 15, 2024 10:48 AM ----- Message from Julianna Benton sent at 03/15/2024 8:19 AM EDT ----- Regarding: Orthopedics / Elbow: Fracture Broken / Recent ED Visit Orthopedics / Elbow: Fracture Broken / Recent ED Visit Patient has been identified by name and Date of (Y/N): Y Patient: Emerald Richardson Date of : 1980 Previous Provider Seen: NA Body Part(s) Identified: Rt Elbow Diagnosis/Reason For Visit: Fracture Reason for the call/escalation: [facility], fractured on Friday03/12/24. Was not referred to a specific provider. Pt has referral in [facility] for HCAP self pay If reason for call/escalation is discharge from ED/ER or Hospital, which facility was the patient seen at: [facility] 03/13/24 Was an appointment scheduled (Y/N): n Person calling if other than patient: pt Return call to if other than patient: pt Best contact number: [phone] Thank you, Julianna Jimenez March 15, 2024 8:19 AM Allergies As of Date: 03/15/2024 Noted Allergy Reaction SULFA (SULFONAMIDE ANTIBIOTICS) 05/04/2015 2 - Rash Date Reviewed: 03/13/2024 Reviewed by: Varinder Suggs RN - Fully Assessed Prescriptions as of 03/15/2024 - doxycycline monohydrate 100 mg tablet Take 1 tablet by mouth two times a day for 7 days. Problem List As Of Date: 03/15/2024 (None) Encounter Status:Closed by PEYTON DOYLE on 03/15/24 [facility] ED NOTEon 03-13-2024 ED NOTE HNO ID: [id number] Author: VEENA NICOLE RN Service: Emergency Medicine Author Type: Registered Nurse Type: ED Notes Filed: 03/13/2024 21:52 Note Text: Pt discharged from ED. Wound care completed per order. R shoulder immobilizer placed. Pt tolerated. RN reviewed DC, follow up instructions, and when to return to ED. Pt verbalizes understanding and denies any needs at this time. VSS [facility] ED PROV NOTEon 03-13-2024 ED PROV NOTE HNO ID: [id number] Author: KENIA CANO MD Service: Emergency Medicine Author Type: Physician Type: ED Provider Notes Filed: 03/13/2024 21:32 Note Text: Attending Note I evaluated the patient and personally participated in the esteban components. I personally saw and examined the patient. I reviewed the resident's note. I agree with the resident's assessment and plan unless otherwise noted. I was present for the esteban portions of the procedure. HPI: 44 year old FEMALE presents for right elbow pain. She is right-hand dominant. Accidentally fell and landed on a [place] hitting her right elbow yesterday when hiking in [place]. She has had some drainage from the wound. Reports some redness and swelling. No numbness or tingling. Tetanus is not up-to-date. Vitals BP 119/81 Pulse 79 Temp 36.5 ?C (97.7 ?F) (Temporal) Resp 16 Wt 61.2 kg (135 lb) LMP 03/10/2024 (Exact Date) SpO2 100% Gen NAD Calm verbal Neuro NCAT PERRLA no focal neuro deficits TAPIA CVS RRR Pulm CTAB Abd Soft NT ND +BS Ext open puncture wound to the R elbow at the olecranon, mildly tender. Surrounding erythema edema warmth. +ttp medial elbow. Able to flex extend supinate pronate Medical decision making: Right elbow injury yesterday. There is an open wound. Tetanus will be updated. There is some drainage on the Band-Aid. It is not purulent or smelling but there is surrounding erythema which could be contusion but more concerning for cellulitis. Do not think septic joint. No fever. X-ray also done there is a subtle lucency at the medial elbow near the ulna that could be a nondisplaced fracture. No major fat pads. No this location. Since this could be an underlying nondisplaced fracture we will put the patient in a sling. Also we will clean the wound we will put her on oral antibiotics. Not open fracture as the locations are different. Kenia Cano MD 9:28 PM March 13, 2024 KENIA CANO 03/13/242131 [facility] ED PROV NOTE HNO ID: [id number] Author: KENIA CANO MD Service: Emergency Medicine Author Type: Physician Type: ED Provider Notes Filed: 03/13/2024 23:12 Note Text: ED Provider Note Patient Name: Emerald Richardson : 1980 SERVICE DATE: 03/13/24 History Patient presents with: Pain (Elbow Pain): Patient fell while hiking and landed on her right elbow. She now has limited movement in the right arm. Patient is a 44-year-old female presenting to the emergency department for right elbow pain. Patient has no significant past medical history. She states that she was hiking in [place] when she tripped and fell onto a [place] hitting her right elbow. She states she has had increased pain and swelling to the elbow causing her to come to the ED to be evaluated. She denies taking any pain medications prior to arrival. She is unsure of when her last tetanus vaccine was. History reviewed. No pertinent past medical history. History reviewed. No pertinent surgical history. No family history on file. Social History Tobacco Use Smoking status: Never Smokeless tobacco: Never Vaping Use Vaping status: Never Used Substance and Sexual Activity Alcohol use: Never Drug use: Never Sexual activity: Yes Partners: Male ALLERGIES Allergen Reactions Sulfa (Sulfonamide * Rash Review of Systems Constitutional: Negative for chills and fever. Respiratory: Negative for cough, shortness of breath and wheezing. Cardiovascular: Negative for chest pain, palpitations and leg swelling. Gastrointestinal: Negative for abdominal pain, diarrhea, nausea and vomiting. Musculoskeletal: Negative for back pain, gait problem and neck pain. Right elbow pain and swelling Neurological: Negative for syncope and headaches. All other systems reviewed and are negative. Physical Exam Vitals [03/13/241926] BP Pulse Temp Temp src Resp SpO2 Weight Height 119/81 79 36.5 ?C (97.7 ?F) Temporal 16 100 % 61.2 kg (135 lb) -- Physical Exam Vitals and nursing note reviewed. Constitutional: General: She is not in acute distress. Appearance: Normal appearance. She is not ill-appearing, toxic-appearing or diaphoretic. HENT: Head: Normocephalic and atraumatic. Eyes: Extraocular Movements: Extraocular movements intact. Conjunctiva/sclera: Conjunctivae normal. Pupils: Pupils are equal, round, and reactive to light. Cardiovascular: Rate and Rhythm: Normal rate and regular rhythm. Pulses: Normal pulses. Heart sounds: Normal heart sounds. No murmur heard. No friction rub. No gallop. Pulmonary: Effort: Pulmonary effort is normal. Breath sounds: Normal breath sounds. No wheezing, rhonchi or rales. Abdominal: General: Abdomen is flat. There is no distension. Palpations: Abdomen is soft. Tenderness: There is no abdominal tenderness. There is no guarding or rebound. Musculoskeletal: Cervical back: Normal range of motion and neck supple. Comments: Mild swelling to the right elbow with overlying erythema and warmth. Tenderness to palpation to the medial aspect of the elbow along the proximal ulna. Active range of motion is only mildly limited due to the swelling. She is able to fully extend and almost fully flex. Radial pulses intact bilaterally. Sensation intact. There is an overlying abrasion to the right elbow with no foreign bodies noted. Skin: General: Skin is warm and dry. Neurological: Mental Status: She is alert and oriented to person, place, and time. Diagnostic Testing ED Labs Ordered and Reviewed - No data to display Procedures ED Course / Clinical Impression ED Course as of 03/13/242123 Others' Documentation Sat Mar 13, [id number] XR ELBOW GENERAL 2V AP/LAT RT - NON-INJURY Maybe nondisplaced ulna fx [MS] 2114 Saw patient. R elbow ttp, medial ttp. Open wound, abrasion, surrounding erythema warmth. Possible ulnar fracture. Then lateral cellulitis. Sling. Abx. tetanus [MS] ED Course User Index [MS] Kenia Cano MD Clinical Impressions as of 03/13/242123 Elbow fracture, right MDM / Disposition / Plan Patient is a 44-year-old female presenting to the emergency department for right elbow pain and swelling after a fall. Patient was seen and examined. Vitals are stable. Patient resting bed comfortably no acute distress. Patient's tetanus vaccine updated. Elbow xray ordered. Patient declined pain medication. Xray shows significant soft tissue swelling at the posterior aspect of the elbow and proximal forearm. There is no evidence of joint effusion. Subtle linear lucency at the medial aspect of the ulna on frontal view is probably projectional, cannot exclude nondisplaced fracture. No evidence of joint effusion. Will give first dose of doxy for possible cellulitis with the significant erythema and warmth. Wound irrigated and cleansed by nursing staff. Placed in sling for the possible proximal ulna fracture. Patient was given (more content not included)... [facility] XR ELBOW 2V AP/LAT RTon 02-22 XR ELBOW 2V AP/LAT RT * * *Final Report* * * DATE OF EXAM: Mar 13 2024 7:41PM AWX [id number] - XR ELBOW 2V AP/LAT RT / PROCEDURE REASON: Elbow trauma, no prior imaging * * * * Physician Interpretation * * * * EXAM:XR ELBOW 2V AP/LAT RT HISTORY: Elbow trauma, no prior imaging COMPARISON:None IMPRESSION:There is significant soft tissue swelling at the posterior aspect of the elbow and proximal forearm. There is no evidence of joint effusion. Subtle linear lucency at the medial aspect of the ulna on frontal view is probably projectional, cannot exclude nondisplaced fracture. No evidence of joint effusion. Additional views or CT scan is recommended to further evaluate.[employer]: [place] Transcribe Date/Time: Mar 13 2024 8:48P Dictated by : MAIKEL LINARES MD This examination was interpreted and the report reviewed and electronically signed by: MAIKEL LINARES MD on Mar 13 2024 8:51PM EST [id number] [facility] Established Visit (Orthopaed ic Surgery)on 08-18-2020 Established Visit (Orthopaedic Surgery) Diagnoses/Problems Assessed Pes cavus (736.73) (Q66.70) Other instability, right ankle (718.87) (M25.371) Provider Impressions Doing well 2.5 months s/p right ankle ligament repair with tendon transfer Plan: - Continue light ankle bracing and low-impact activities for 1 more month - If doing well can return to all activities - Follow-up PRN By signing my name below, I, Nguyen Candelaria, attest that this documentation has been prepared under the direction and in the presence of Dr. John Arreaga. All medical record entries made by the Nguyen were at my direction and personally dictated by me. I have reviewed the chart and agree that the record accurately reflects my personal performance of the history, physical exam, discussion and plan. Chief Complaint Follow up right ankle Brostrom ligament repair with peroneal longus to brevis tendon transfer done 06/05/20, NO CONCERNS, a little sore but no issues, still wear brace while active History of Present Illness Emerald is 2.5 months out from a right ankle Brostrom ligament repair with peroneal longus to brevis tendon transfer. She has some soreness to the area, but pain has been improving. She wears a light athletic ankle brace. She denies any popping and catching. Active Problems Problems Aftercare following surgery (V58.89) (Z48.89) Ankle pain, right (719.47) (M25.571) Other instability, right ankle (718.87) (M25.371) Pes cavus (736.73) (Q66.70) Family History Mother No pertinent family history Father No pertinent family history Social History Problems Daily caffeine consumption Never a smoker No alcohol use No illicit drug use Allergies Medication Sulfa Drugs Recorded By: Eleanor Garcia; 04/28/2020 11:09:23 AM Current Meds Medication NameInstruction No Reported Medications Physical Exam Mild swelling. No erythema or warmth over right lateral ankle. She has good stability with inversion and anterior drawer test. She still has a subtle cavus foot, but slightly improved on the right. She has good maintained plantarflexion strength. Good strength with eversion. Neurovascular status is intact. Signatures Electronically signed by : John Arreaga MD; Aug 18 2020 10:48AM EST (Author) [facility] [employer] PT Ortho Evaluation (PT Orth o Evaluation)on 07-17-2020 PT Ortho Evaluation (PT Ortho Evaluation) Therapy Diagnosis Ankle pain, right (719.47) (M25.571) Plan of Care Goals: Goals set and discussed today. By discharge EMERALD RICHARDSON will achieve the following goals: 1. Patient will report 0 out of 10 pain with community ambulation. 2. Patient will demonstrate 12 degrees of dorsiflexion to assist with improving balance. 3. Patient will maintain dynamic single leg stance for 45 seconds with no assist to decrease risk of falling. 4. Patient will ambulate community distances with normal gait pattern and no assistive device. 5. Patient will report a score of 65/80 on LEFS to demonstrate improve perceived functional ability. 6. Patient will ascend/ descend flight of stairs with reciprocal pattern and no assistive device. Planned interventions include: education/instruction (activity modification, weaning from boot), home program, manual therapy (Passive ankle range of motion, soft tissue mobilization, talar mobilizations as needed ), therapeutic exercises (Active range of motion, static and dynamic balance / proprioception when appropriate ) and vasopneumatic device w/ cold. Frequency and duration:. 1 every 7 to 10 days for 4 or 5 sessions. Potential to achieve rehab goals is good Plan of care was developed with input and agreement by the patient. Assessment Presents approximately 6 weeks s/p Brostrom procedure for right ankle. Overall doing well. Has been weaning from the boot while ambulating within the home without much of an increase in her pain. Encouraged to start back up with icing now that she will be ambulating without the boot more often. Also provided with D and E tubigrip to help with swelling. Did have some difficulty with balance activities. Patient would benefit from continued PT to address impairments. Clinical Presentation: Stable and/or uncomplicated characteristics. Level of Complexity: low Problem List:. Right ankle pain, decreased range of motion, impaired balance, altered gait, increased difficulty with ADLs. Active Problems Ankle pain, right (719.47) (M25.571) Assessed By: Clint Shin (Physical Therapy); Last Assessed: 17 Jul 2020 Reason For Visit Initial Evaluation. Referred by: Dr. Arreaga Adult Risk Screening There are no spiritual/cultural practices/values/needs that are important to know Initial Fall Risk Screening: EMERALD has not fallen in the last 6 months. EMERALD does not have a fear of falling. She does not need assistance with sitting, standing or walking. Does not need assistance walking in her home. She does not need assistance in an unfamiliar setting. The patient is not using an assistive device. Insurance Insurance reviewed Visit number: 1 Subjective Mechanism of Injury:. Onset / cause of pain: 06/05/2020 - s/p Brostrom procedure for ankle instability - chronic issue however the last 6 months prior to surgery was having more pain and instability Location of pain: Throughout ankle Description of pain: Tightness / stiffness Intensity of pain (0 to 10 scale): Current: 0 , worst: 3-5 Increased pain with: Walking, weight bearing, stairs - increased difficulty Decreased pain with: Rest Functional limitations / difficulty: Decreased activity tolerance Previous treatment: Boot after surgery, was icing Pertinent history including surgeries: None Other: Hobbies include hiking / walking / biking. Today is her first day going outside without her boot - has been ambulating around the house without a boot for a few days - hasn't noticed an increase in pain. Precautions: Fall Risk: none WBAT, PRE's starting 6 weeks post op, avoid dorsiflexion and inversion for 8 weeks post op. Functional Assessment Patient stated goal(s) for treatment include: relieving pain and returning to regular activity levels . Personal Factors That May Impact Care: language Confirmed Maori . Objective Ortho Observation / palpation: Well healed incision over the lateral ankle, denies any tenderness to palpation along the incision / lateral malleolus, some slight redness around the incision Range of motion: * Supine active range of motion unless otherwise noted Dorsiflexion: Right: 2-3 degrees , left: 12 degrees Plantarflexion: Right: 45 degrees , left: 55 degrees Inversion Right: 15 degrees , left: 55 degrees Eversion: Right: 5 degrees , left: 10 degrees Strength: Dorsiflexion: Right: 5 , left: 5 Plantarflexion: Right: 5 , left: 5 Inversion Right: 5 , left: 5 Eversion: Right: 4 , left: 5 Gait: Step through gait with slight decrease in stance time on the right, decreased heel strike on the right, ambulating with velcro ankle support donned Balance: Static tandem stance: Mild difficulty with no upper extremity support Dynamic tandem stance: Moderate difficulty with no upper extremity support Special tests: NT Subjective outcome LEFS: 40/80. Treatment Time in clinic started at 2:34 pm Time in clinic ended at 3:15 pm Total time in clinic is 41 minutes. Total timed code time is 10 minutes. Treatment Performed Today:. patient education on pathology, plan of care, role of therapy, activity modification, symptom monitoring, home exercise program. Evaluation Code: 98476 PT Eval: Low Complexity, 20 min(s). Timed: 94925 Therapeutic Exercises, 10 min(s), 1 unit(s). UnTimed: 56524 Vasopneumatic Device, 10 min(s), 1 unit(s). Resources provided today: home program (scanned) and education Signatures Electronically signed by : Clint Shin, PT DPT; Jul 17 2020 5:25PM EST (Author) [facility] Post Op (Orthopaedic Surgery )on 07-04-2020 Post Op (Orthopaedic Surgery) Diagnoses/Problems Assessed Pes cavus (736.73) (Q66.70) Ankle pain, right (719.47) (M25.571) Other instability, right ankle (718.87) (M25.371) Orders Ankle pain, right, Other instability, right ankle, Pes cavus Physical Therapy - General Referral Evaluation and Treatment Evaluate AND Treat (8 WEEKS POST OP SURGERY DONE ON 06/05) S/P brostrom ligament repair WBAT IN BOOT, WEAN OUT OF BOOT TO SHOE BY 8 WEEKS WEAR ATHLETIC BRACE IN SHOE ADVOID PASSIVE DORSIFLEXTION INVERSION UNTIL 8 WEEKS POST OP BEGIN PRE'S AT 6 WEEEKS Status: Hold For - Scheduling Requested for: 04Jul2020 Provider Impressions Doing well 1 month s/p right ankle ligament repair with tendon transfer Plan: - May wean from boot with physical therapy starting in 2 weeks - Avoid passive dorsiflexion inversion until 8 weeks postop - Will reassess in 6 weeks. No x-rays By signing my name below, I, Nguyen Candelaria, attest that this documentation has been prepared under the direction and in the presence of Dr. John Arreaga. All medical record entries made by the Nguyen were at my direction and personally dictated by me. I have reviewed the chart and agree that the record accurately reflects my personal performance of the history, physical exam, discussion and plan. Chief Complaint Follow up right ankle Brostrom ligament repair with peroneal longus to brevis tendon transfer done 06/05/20, she states that she is doing very well and progressing nicely. She does have a small spot of irritation that is not healing well because her boot is rubbing on it. History of Present Illness Emerald is 1 month out from a right ankle Brostrom ligament repair with peroneal longus to brevis tendon transfer. She is doing well pain barbosa. She has been weightbearing in her boot. Her boot has been causing a small area of irritation due to friction against the skin. Active Problems Problems Aftercare following surgery (V58.89) (Z48.89) Ankle pain, right (719.47) (M25.571) Other instability, right ankle (718.87) (M25.371) Pes cavus (736.73) (Q66.70) Family History Mother No pertinent family history Father No pertinent family history Social History Problems Daily caffeine consumption Never a smoker No alcohol use No illicit drug use Allergies Medication Sulfa Drugs Recorded By: Eleanor Garcia; 04/28/2020 11:09:23 AM Current Meds Medication NameInstruction No Reported Medications Vitals Vital Signs Recorded: 04Jul2020 03:20PM Height5 ft 6 in [id number] lb BMI Xvyttuwhqu07.79 BSA Calculated1.69 Physical Exam On exam, she has well healed incisions. .Negative anterior drawer of the ankle. Strong resisted eversion. Neurovascular status is intact. Signatures Electronically signed by : John Arreaga MD; Jul 04 2020 5:44PM EST (Author) [facility] Established Visit (Orthopaed ic Surgery)on 06-20-2020 Established Visit (Orthopaedic Surgery) No report was sent [facility] Post Op (Orthopaedic Surgery )on 06-20-2020 Post Op (Orthopaedic Surgery) Diagnoses/Problems Assessed Pes cavus (736.73) (Q66.70) Aftercare following surgery (V58.89) (Z48.89) Provider Impressions Allow full weight bearing in the equalizer boot. Will reassess in 2 weeks. No x-rays. Will consider then starting therapy weaning from the boot. IKaren, am scribing for, and in the presence of, Dr. John Arreaga on 06/20/2020 at 8:30AM EST. I, Dr. John Arreaga, personally attest to the documentation as scribed in my presence. I have reviewed the chart and agree that the record accurately reflects my performance of the history, exam, assessment, plan, and relevant diagnoses. Chief Complaint Follow up right ankle Brostrom ligament repair with peroneal longus to brevis tendon transfer done 06/05/20, she states that she is doing very well but her swelling causes discomfort. History of Present IllnessPatient presents for follow-up evaluation of right ankle pain in the setting of a right ankle injury. She is s/p Bromstrom ligament repair with peroneal longus to brevis tendon transfer performed on 06/05/20. She reports improvement in her pain, only noting concern for mild discomfort with swelling of her right ankle. She continues to wear her post-op orthopedic boot as instructed. She has not yet started physical therapy. Active Problems Problems Aftercare following surgery (V58.89) (Z48.89) Ankle pain, right (719.47) (M25.571) Other instability, right ankle (718.87) (M25.371) Pes cavus (736.73) (Q66.70) Family History Mother No pertinent family history Father No pertinent family history Social History Problems Daily caffeine consumption Never a smoker No alcohol use No illicit drug use Allergies Medication Sulfa Drugs Recorded By: Eleanor Garcia; 04/28/2020 11:09:23 AM Current Meds Medication NameInstruction No Reported Medications Vitals Vital Signs Recorded: [id number] 08:21AM Height5 ft 6 in Tfqgkw676 lb BMI Inmvdmvenw35.79 BSA Calculated1.69 Physical Exam Musculoskeletal Right ankle with minimal swelling, normal neurovascular status, well healed incision with steri-strips applied today. General stress testing of lateral ligament repair appears stable along with her tendon transfer. Signatures Electronically signed by : John Arreaga MD; Jun 20 2020 4:41PM EST (Author) [facility] [employer] Post Op (Orthopaedic Surgery )on 06-09-2020 Post Op (Orthopaedic Surgery) Diagnoses/Problems Assessed Aftercare following surgery (V58.89) (Z48.89) Provider Impressions Doing well status post right ankle Brostrom ligament repair with peroneal longus to brevis tendon transfer done Plan: - Placed in a sterile dressing and then in a high-tide boot today - May be weightbearing as tolerated - She can remove boot for gentle ROM exercises - She will follow-up in 10 days for suture removal By signing my name below, I, Nguyen Candelaria, attest that this documentation has been prepared under the direction and in the presence of Dr. John Arreaga. All medical record entries made by the Nguyen were at my direction and personally dictated by me. I have reviewed the chart and agree that the record accurately reflects my personal performance of the history, physical exam, discussion and plan. Chief Complaint Follow up right ankle Brostrom ligament repair with peroneal longus to brevis tendon transfer done 06/05/20, she states that she is doing well even with having a home emergency where she ran on her surgical foot. History of Present Illness Emeradl is right ankle Brostrom ligament repair with peroneal longus to brevis tendon transfer. She is well pain barbosa. She is here for her first postop visit. Active Problems Problems Ankle pain, right (719.47) (M25.571) Other instability, right ankle (718.87) (M25.371) Pes cavus (736.73) (Q66.70) Family History Mother No pertinent family history Father No pertinent family history Social History Problems Daily caffeine consumption Never a smoker No alcohol use No illicit drug use Allergies Medication Sulfa Drugs Recorded By: Eleanor Garcia; 04/28/2020 11:09:23 AM Current Meds Medication NameInstruction No Reported Medications Vitals Vital Signs Recorded: [id number] 09:58AM Height5 ft 6 in Pgoecl286 lb BMI Arixkiuuvu21.79 BSA Calculated1.69 Physical Exam On exam, she has well healing incisions. Minimal swelling. No signs of infection. No drainage. Neurovascular status is intact. Marianna testing of inversion strength and anterior drawer shows that her repair remains stable. Signatures Electronically signed by : John Arreaga MD; Jun 09 2020 1:09PM EST (Author) Normal [employer] BASIC METABOLIC PANELon 05-23 Anion gap [Moles/Vol] 8 mmol/L Low 10 - 20 [facility] Comment on above: Performed By: #### B MP #### [facility] [address] [place] [address] Calcium [Mass/Vol] 8.6 mg/dL Normal 8.6 - 10.3 [facility] Comment on above: Performed By: #### B MP #### [address] [address] Chloride [Moles/Vol] 108 mmol/L High 98 - 107 [facility] Comment on above: Performed By: #### B MP #### [address] [address] Creatinine [Mass/Vol] 0.66 mg/dL Normal 0.50 - 1.05 [facility] Comment on above: Performed By: #### B MP #### [address] [address] GFR- AM. >60 Normal >60 [facility] Comment on above: Result Comment: CALC ULATIONS OF ESTIMATED GFR ARE PERFORMED USING THE MDRD STUDY EQUATION FOR THE IDMS-TRACEABLE CREATININE METHODS. CLIN CHEM 2007;53:766-72 Performed By: #### B MP #### [address] [address] GFR-NON AM. >60 Normal >60 [facility] Comment on above: Performed By: #### B MP #### [address] [address] Glucose [Mass/Vol] 79 mg/dL Normal 74 - 99 [facility] Comment on above: Performed By: #### B MP #### [address] [address] HCO3 (Bld) [Moles/Vol] 29 mmol/L Normal 21 - 32 [facility] Comment on above: Performed By: #### B MP #### [address] [address] Potassium [Moles/Vol] 3.7 mmol/L Normal 3.5 - 5.3 [facility] Comment on above: Performed By: #### B MP #### [address] [address] Sodium [Moles/Vol] 141 mmol/L Normal 136 - 145 [facility] Comment on above: Performed By: #### B MP #### [address] [address] Urea nitrogen [Mass/Vol] 8 mg/dL Normal 6 - 23 [facility] Comment on above: Performed By: #### B MP #### [address] [address] CBCon 06-05-2020 Erythrocyte distribution width (RBC) [Ratio] 14.2 % Normal 11.5 - 14.5 [facility] Comment on above: Performed By: #### C BC #### [address] [address] Hematocrit (Bld) [Volume fraction] 42.6 % Normal 36.0 - 46.0 [facility] Comment on above: Performed By: #### C BC #### [address] [address] Hemoglobin (Bld) [Mass/Vol] 13.2 g/dL Normal 12.0 - 16.0 [facility] Comment on above: Performed By: #### C BC #### [address] [address] MCHC (RBC) [Mass/Vol] 31.0 g/dL Low 32.0 - 36.0 [facility] Comment on above: Performed By: #### C BC #### [address] [address] MCV (RBC) [Entitic vol] 92 fL Normal 80 - 100 [facility] Comment on above: Performed By: #### C BC #### [address] [address] Platelets (Bld) [#/Vol] 222 10*3/uL Normal 150 - 450 [facility] Comment on above: Performed By: #### C BC #### [address] [address] RBC (Bld) [#/Vol] 4.62 x10E12/L Normal 4.00 - 5.20 [facility] Comment on above: Performed By: #### C BC #### [place] [id number] [place] [address] WBC (Bld) [#/Vol] 6.6 10*3/uL Normal 4.4 - 11.3 [facility] Comment on above: Performed By: #### C BC #### [address] [address] HCG,URINEon 06-05-2020 Beta HCG ( test) Ql (U) Negative Normal Negative [facility] Comment on above: Performed By: #### H CGU #### [address] [address] History and Physical - Surge ry > 30 dayson 06-05-2020 History and Physical - Surgery > 30 days History of Present Illness: /Lactating: Are You unable to answer Order Testorder urine test Are You Currently Breastfeedingunable to answer History Present Illness: Reason for surgery: Surgical correction of right ankle instability HPI: Otherwise healthy active female has a 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 She has failed preoperative conservative treatments. Allergies: Allergies: sulfa drugs: Unknown Home Medication Review: Home Medications Reviewed: yes Impression/Procedure: Impression and Planned Procedure: Right ankle instability with mild cavus foot. Right ankle Brostrm ligament repair with peroneus longus to brevis tendon transfer. Possible gastrocnemius release. ERAS (Enhanced Recovery After Surgery): ERAS Patient: no Physical Exam by System: Constitutional: Well developed, awake/alert/oriented x3, no distress, alert and cooperative Respiratory/Thorax: Patent airways, CTAB, normal breath sounds with good chest expansion, thorax symmetric Cardiovascular: Regular, rate and rhythm, no murmurs, 2+ equal pulses of the extremities, normal S 1and S 2 Consent: COVID-19 Consent: COVID-19 Risk ConsentSurgeon has reviewed esteban risks related to the risk of dahiana COVID-19 and if they contract COVID-19 what the risks are. Signatures/Attestation: Note Completion: Attending Provider Inpatient Certification StatementObservation patient/other outpatient visits Electronic Signatures: John Arreaga) (Signed 05-Jun-2020 07:12) Authored: History of Present Illness, Allergies, Home Medication Review, Impression/Procedure, ERAS, Physical Exam, Consent, Note Completion Last Updated: 05-Jun-2020 07:12 by John Arreaga) [facility] Patient Profile - Preop v2on 06-05-2020 Patient Profile - Preop v2 Profile: Initial Info: How to be AddressedJessica Spoken Language PreferredEnglish Are you currently using the Personal Electronic Health Record or [employer] - is now [employer]no Are you interested in learning more about [facility] for the management of your healthyes, information provided Stated Reason for Admissionright ankle ligament and tendon repair/transfer Primary Contact Name and NumberJaime Patient Belongingsremains with patient Patient Belongings Remaining with Patientclothing; locker 30 Medications Brought to Hospitalno General Health: Weight in kg61 kilogram(s) Weight in pxf834.4 pound(s) Weight Methodstated Height in feet5 feet Height in inches6 inch(es) Height in cm167.6 centimeter(s) Height Methodstated BMI (kg/m2)21.716 square meter Patient or Family Member Reaction to Anesthesianever had anesthesia Health Mgmt: Symptoms/Conditions Managed at [facility] Are You no Are You Currently Breastfeedingno Barriers to Managing Healthnone Relationship/Environ: Resource/Environmental Concernsnone Substance: Current or Former Substance Use never: Cigarette/Tobacco, e-Cigarette/Vaping, Alcohol, Street Drugs Risk Screens: COVID-19 Screening Completedno exposure or symptoms Advance Directive/DNRno Advance Directive Information Givenpatient/family declined During the past month, have you often been bothered by feeling down, depressed or hopelessno During the past month, have you often had little interest or pleasure in doing thingsno Have you had any thoughts of harming yourselfno Have you had any thoughts of harming anyone elseno Are you or have you been threatened or abused physically,emotionally or sexually abused by anyoneno Do you feel UNSAFE going back to the place you are livingno Patient is Able to be Assessed for Learningyes Factors Influencing Readiness to Learnfatigue; pain Factors that Impact Ability to Learnnone Devices/Methods Used to Communicatenone Learning Preferencesverbal instruction; written material Cultural Considerationsnone Developmental Considerationsnone Sabianist Considerationsnone Other learner availableno [place] RiskPatient location auto qualifies him/her for HIGH RISK. Are there any cultural, spiritual, druze practices/values/needs that are important for us to knowno Pain Scalenumerical 0-10 Pain Scale Educationteaching provided Current Pain Level0 = None Acceptable Pain Level3 = Mild Chronic Painno Information Review: Allergies, Home Meds and Significant Events have been Reviewed and Verified with Patient/Familyyes Allergy, Intolerance, Adverse Event: Allergies: sulfa drugs: Drug Category, Unknown, Active Electronic Signatures: Regina Lehman) (Signed 05-Jun-2020 13:41) Authored: Initial Info, General Health, Health Mgmt, Relationship/Environ, Substance, Risk Screens, Additional Information Last Updated: 05-Jun-2020 13:41 by Regina Lehman) Normal [facility] Preop Checkliston 06-05-2020 Preop Checklist Preop Checklist: Preop Checklist: Arrival [id number] Arrival Time13:15 Temperature C36.2 degrees C Temperature F97.1 degrees F Heart Rate72 beats per minute Respiratory Rate18 breath per minute Blood Pressure Sfgmqvbf455 mm/Hg Blood Pressure Nfbegkgcz77 mm/Hg NPO [id number] 15:30 NPO Commentsolids ; 06/05/20 0830 water ID Band Onyes Allergy Bandyes Consent Signedyes H&P Completeyes Anesthesia Assessment Completedyes EKG Performedsee results tab HCG Urine TestUrine Sent SCD's Appliednot applicable Denturesnot applicable Prostheticsnot applicable Hearing Aidsnot applicable Valuables Securedplaced in locker clothing Glasses / Contactsnot applicable Cardiovascular Assessment: Apicalregular Radial Pulsespalpable Extremitieswarm Respiratory Assessment: Respirationsunlabored regular Air Exchangeequal, good Breath Soundsclear Neurological Assessment: Level of Consciousnessalert, oriented Mobilitymoves all extremities Able to Express Selfyes Age Appropriateyes Emotional Statuscalm Preop Education: Surgical Site Infection Preventionyes Pain Scales and Managementyes Language / Communication: Language / CommunicationEnglish Electronic Signatures: Regina Lehman) (Signed 05-Jun-2020 14:06) Authored: Preop Checklist Last Updated: 05-Jun-2020 14:06 by Regina Lehman) Normal [facility] CORONAVIRUS 2019, SCREEN ASY MPTOMATICon 06-02-2020 SARS-CoV-2 (COVID-19) RNA JEFFREY+probe Ql (Unsp spec) Not detected Normal Not Detected [facility] Comment on above: Result Comment: . This assay is designed to detect the N, ORF1ab and/or S genes of SARS-CoV-2 via nucleic acid amplification. A Negative (NOT DETECTED) result does not preclude 2019-nCoV infection since the adequacy of sample collection and/or low viral burden may result in presence of viral nucleic acids below the clinical sensitivity of this test method. Negative (NOT DETECTED) result should not be used as the sole basis for treatment or other patient management decisions. Rather negative results should be combined with clinical observations, patient history, and epidemiological information to make patient management decisions. Fact sheet for providers: https://www.fda.gov/media/232818/download Fact sheet for patients: https://www.fda.gov/media/201898/download This test has received FDA Emergency Use Authorization (EUA) and has been verified by [facility] ([facility]). This test is only authorized for the duration of time that circumstances exist to justify the authorization of the emergency use of in vitro diagnostic tests for the detection of SARS-CoV-2 virus and/or diagnosis of COVID-19 infection under section 564(b)(1) of the Act, 21 U.S.C. 360bbb-3(b)(1), unless the authorization is terminated or revoked sooner. [facility] is certified under CLIA-88 as qualified to perform high complexity testing. Testing is performed in the [facility] laboratories located at [address] [place] [address]. Performed By: #### C OVSC #### [place] [address] Lab Specimen Source Nasal, Nasopharyngeal Normal [facility] Comment on above: Performed By: #### C OVSC #### [place] [address] Covid 19 Resultson 0 SARS-CoV-2 (COVID-19) RNA JEFFREY+probe Ql (Unsp spec) NEGATIVE COVID-19 Test Coronaviruses are common world-wide and are the cause of many common colds. SARS-COV2 is a new coronavirus that began circulating worldwide in 2019 so we are calling it COVID-19. It has been estimated that four out of five patients with COVID-19 will recover at home without the need for medical attention. Symptoms of COVID-19 include cough, fever, shortness of breath, loss of taste or smell and other flu-like symptoms including chills, sore muscles, sore throat, and headache. Severe illness is more common in older people and people with other health problems such as high blood pressure, obesity, and immune system problems. If the test is positive, you have COVID-19. You will be contacted by the ordering physicians office and instructed to remain on home isolation, in accordance with CDC guidelines. You may also be contacted by the [facility] to see if any of your close contacts may have been exposed to the virus and need to quarantine. If the test is negative, you likely do not have COVID-19 at this time, but you still may have a different illness that can spread to other people (like Influenza, or the Flu) and could still be at risk for getting COVID-19. We recommend that you stay away from other people to limit the spread of illness until your symptoms are improving and you are fever-free for 24 hours without the use of fever lowering medications such as acetaminophen or ibuprofen. No test is 100% accurate so if you are still concerned you may have COVID-19, talk to your doctor about the need to continue to stay away from others. Medicines Acetaminophen (Tylenol and others) is generally safe. Anti-inflammatory medications, such as Ibuprofen (Advil or Motrin) or Naproxen (Aleve) can also be used. Lukz-hoe-jbcyblp cough and cold medicines can be used according to the instructions on the package. Some hbhg-kmp-gqtmoaw medicines also contain acetaminophen. Make sure you are not taking more than your recommended dose For those not hospitalized, there is no specific treatment available for this illness. Antibiotics do not treat Coronaviruses. Follow-Up Follow up with your doctor by scheduling a virtual visit or consider follow-up at one of our urgent care fever clinics. If you are having difficulty breathing, or are very weak and having difficulty standing, this is a medical emergency. Call 911 or have someone take you to the nearest emergency room immediately. If possible, wear a facemask. Additional guidance from the CDC for patients who tested POSITIVE for COVID-19 How to isolate: Isolate yourself in a specific room at home and limit your contact with others. Use a separate bathroom from other members of the household, when possible. Leave home only to get essential medical care. Do not go to work, school or public areas. Avoid using public transportation, ride-sharing, or taxis. Restrict contact with pets and other animals. If you must care for your pet or be around animals while you are sick, wash your hands before and after your interaction and wear a facemask. Make sure that shared spaces in the home have good airflow, such as by an air conditioner or an opened window, weather permitting. Personal Hygiene Procedures: Wear a face mask when in the same room as other people or pets. If a face mask interferes with your breathing, others should wear a mask when sharing space with you. Frequent hand-washing: wash your hands with soap and water for at least 20 seconds. If soap and water are not available, use alcohol-based hand family medicine physician. Avoid touching your eyes, nose, and mouth with unwashed hands. Household Hygiene Procedures: Avoid sharing personal household items such as dishes, glassware, cups, eating utensils, towels or bedding with other people or pets in your home. After use, these items should be washed with soap and hot water. Disinfect all high-touch surfaces every day with antibacterial cleaning solutions such as Lysol wipes, bleach, cleansers, etc. High-touch surfaces include tabletops, doorknobs, bathroom fixtures, toilets, phones, keyboards, tablets and bedside tables. Immediately clean any surfaces that may have blood, poop or body fluids on them, using antibacterial cleaning solutions such as Lysol wipes, bleach, cleansers, etc. If clothing or bedding come into contact with blood, poop or body fluids, they should be washed immediately. Follow the directions on the laundry detergent and clothing labels but hot water is recommended when possible. Stopping home isolation precautions: If possible, consult your doctor before stopping home isolation precautions. According to the CDC, you can discontinue home isolation precautions when you have met both of these criteria: Your fever and respiratory symptoms have been gone for 24 hours without the use of any medicines like ibuprofen (Motrin) (more content not included)... Normal [facility] ANKLE, COMPLETE, MIN 3 VIEWS on 04-28-2020 ANKLE, COMPLETE, MIN 3 VIEWS Patient Name: EMERALD RICHARDSON STUDY: Right ankle, 3 views. Left ankle, one view. INDICATION: RIGHT ANKLE PAIN. COMPARISON: None. ACCESSION NUMBER(S): [id number] ORDERING CLINICIAN: JOHN ARREAGA FINDINGS: Right ankle: No acute fracture or malalignment. The ankle mortise is normally aligned. Small ossific spur in the talar neck which can be associated with anterior impingement. Soft tissues are unremarkable. Single AP view of the left ankle is within normal limits. IMPRESSION: No acute fracture or malalignment in the right ankle. Small ossific spur in the right talar neck which can be associated with anterior impingement. Correlate with patient's symptoms. Electronically signed by: DORENE POWELL MD [facility] Initial Visit (Orthopaedic S urgery)on 04-28-2020 Initial Visit (Orthopaedic Surgery) Diagnoses/Problems Assessed Pes cavus (736.73) (Q66.70) Other instability, right ankle (718.87) (M25.371) Orders SocHx: Never a smoker Tobacco Use Screening; Status:Complete; Done: 28Apr2020 Provider Impressions 1. Pes cavus on the right 2. Right lateral ankle instability After long discussion with the patient regarding treatment options, along with a discussion of risks and benefits of each, she would like to proceed with a Brostrom ligament repair with peroneal longus to brevis tendon transfer +/- release of gastrocnemius. She would most likely have surgery within the next month. She will call to schedule. After discussion of risks and benefits of the procedure, a preoperative informed consent was obtained. By signing my name below, I, Nguyen Candelaria, attest that this documentation has been prepared under the direction and in the presence of Dr. John Arreaga. All medical record entries made by the Maria Fernandaibashlyn were at my direction and personally dictated by me. I have reviewed the chart and agree that the record accurately reflects my personal performance of the history, physical exam, discussion and plan. Chief Complaint Patient visit for right ankle pain, she states that she has history of ankle sprain and feels that her ankle easily gives out. She states that her most recent injury was November on a hiking trip and has been progressively getting worse. Her pain is along lateral side of her ankle and radiates both into her foot and into her leg. She has been using over the counter brace and high shaft boots to help with support of her ankle and has helped with her symptoms slightly. History of Present Illness Emerald has a history of multiple ankle rolling events in the past. She is known to me from my previous work in [place]. Her most recent rolling ankle event was in November 2019, that lead to a few days later of swelling, erythema and discomfort. Pain is underneath fibular lateral ankle. When going up and down the stairs she has anterior right ankle pain with associated swelling. She also has lateral leg radiation of pain. Review of Systems Constitutional: no fever, no chills, not feeling tired, no recent weight gain and no recent weight loss. ENT: no nosebleeds. Cardiovascular: no chest pain. Respiratory: no shortness of breath and no cough. Gastrointestinal: no abdominal pain, no nausea, no vomiting and no diarrhea. Musculoskeletal: arthralgias and joint swelling. Integumentary: no rashes and no skin wound. Neurological: no headache. Psychiatric: no depression and no sleep disturbances. Endocrine: no muscle weakness and no muscle cramps. Hematologic/Lymphatic: no swollen glands and no tendency for easy bruising. All other systems have been reviewed and are negative for complaint. Active Problems Problems Ankle pain, right (719.47) (M25.571) Family History Mother No pertinent family history Father No pertinent family history Social History Problems Daily caffeine consumption Never a smoker No alcohol use No illicit drug use Allergies Sulfa Drugs Recorded By: Eleanor Garcia; 04/28/2020 11:09:23 AM Current Meds Medication NameInstruction No Reported Medications Vitals Vital Signs Recorded: 28Apr2020 11:08AM Height5 ft 6 in Ogaftm242 lb BMI Lukrqnlumm44.79 BSA Calculated1.69 Physical Exam In stance she has mild hindfoot varus and mild cavus foot type. Able to heel rise with good strength. Normal foot pulses. Normal sensation. 10 ankle dorsiflexion and 50 plantarflexion. Right subtalar motion is supple and full. Very mild gastroc contracture. 2+ anterior drawer. Ankle joint is stable to inversion. Mild anterior joint line pain. Mild pain over the anterior talofib. Constitutional General appearance: Alert and in no acute distress. Well developed, well nourished. Eyes External Eye, Conjunctiva and lids: Normal external exam - pupils were equal in size, round, reactive to light (PERRL) with normal accommodation and extraocular movements intact (EOMI). Ears, Nose, Mouth, and Throat External inspection of ears and nose: Normal. Neck Neck: No neck mass was observed. Supple. Pulmonary Respiratory effort: No respiratory distress. Auscultation of lungs: Clear bilateral breath sounds. Cardiovascular Pedal pulses: Normal. Examination of extremities: No peripheral edema. Auscultation of heart: Heart rate and rhythm were normal, normal S1 and S2, no gallops, no murmurs and no pericardial rub. Abdomen Abdomen: Normal bowel sounds, soft nontender; no abdominal mass palpated.. No rebound, rigidity or guarding. Skin Skin and subcutaneous tissue: Normal skin color and pigmentation, normal skin turgor, and no rash. Neurologic Reflexes: Deep tendon reflexes were 2+ and symmetric. Sensation: Normal. Psychiatric Judgment and insight: Intact. Orientation to person, place, and time: Alert and oriented x 3. Mood and affect: Normal. Results/Data 3 views standing x-rays of the right ankle were obtained today, these show mild cavus foot type, no acute fractures, stable ankle mortis, and small dorsal talar neck osteophyte. Signatures Electronically signed by : John Arreaga MD; Apr 28 2020 12:21PM EST (Author) Normal [facility] Vital Signs Date Time Vital Sign Value Performing Clinician Ame chau 12-06-2024 12:26-0400 Body mass index (BMI) [Ratio] 22.6 kg/m2 Anastacia Castellanos MD Work Phone: [facility] 12-06-2024 12:26-0400 Body weight 63.5 kg Anastacia Castellanos MD Work Phone: [facility] 12-06-2024 12:26-0400 Diastolic blood pressure 62 mm[Hg] Anastacia Castellanos MD Work Phone: [facility] 12-06-2024 12:26-0400 Heart rate 71 /min Anastacia Castellanos MD Work Phone: [facility] 12-06-2024 12:26-0400 Systolic blood pressure 97 mm[Hg] Anastacia Castellanos MD Work Phone: [facility] 11-10-2024 10:09-0400 Body height 167.6 cm Elizabeth Hebert MD Work Phone: [facility] 11-10-2024 10:09-0400 Body mass index (BMI) [Ratio] 22.11 kg/m2 Elizabeth Hebert MD Work Phone: [facility] 11-10-2024 10:09-0400 Body weight 62.14 kg Elizabeth Hebert MD Work Phone: [facility] 11-10-2024 10:09-0400 Diastolic blood pressure 60 mm[Hg] Elizabeth Hebert MD Work Phone: [facility] 11-10-2024 10:09-0400 Heart rate 73 /min Elizabeth Hebert MD Work Phone: [facility] 11-10-2024 10:09-0400 Systolic blood pressure 92 mm[Hg] Elizabeth Hebert MD Work Phone: [facility] 10-28-2024 08:22-0400 Body height 162.6 cm Elizabeth Hebert MD Work Phone: [facility] 10-28-2024 08:22-0400 Body mass index (BMI) [Ratio] 24.03 kg/m2 Elizabeth Hebert MD Work Phone: [facility] 10-28-2024 08:22-0400 Body weight 63.5 kg Elizabeth Hebert MD Work Phone: [facility] 10-28-2024 08:22-0400 Diastolic blood pressure 64 mm[Hg] Elizabeth Hebert MD Work Phone: [facility] 10-28-2024 08:22-0400 Heart rate 81 /min Elizabeth Hebert MD Work Phone: [facility] 10-28-2024 08:22-0400 Systolic blood pressure 96 mm[Hg] Elizabeth Hebert MD Work Phone: [facility] Encounters Encounter Date Encounter Type Care Provider Facility Start: 12-15-[address] [facility] Facility:[facility] Start: 12-14-2024 End: 12-14-2024 Telephone encounter Anastacia Castellanos MD Work Phone: [facility] Obstetrics and Gynecology - [place] Comment on above: Surgery Scheduling Start: 12-14-2024 Encounter for other preprocedural examination [facility] Start: 12-08-2024 End: 12-13-2024 Telephone encounter Anastacia Castellanos MD Work Phone: [facility] Clinical Communication Comment on above: Surgery Scheduling Start: 12-06-2024 End: 12-06-2024 ambulatory [facility] Start: 12-06-2024 End: 12-06-2024 Office outpatient visit 15 minutes Anastacia Castellanos MD Work Phone: [facility] Obstetrics and Gynecology - [place] Comment on above: Cervical mass (Prima ry Dx); PCB (post coital bleeding); Irregular bleeding Start: 11-10-2024 End: 11-10-2024 Patient encounter procedure Elizabeth Hebert MD Work Phone: [facility] Obstetrics and Gynecology - [place] Comment on above: Cervix abnormality ( Primary Dx) Start: 11-10-2024 End: 11-10-2024 ambulatory ELIZABETH HEBERT [facility] Start: 11-08-2024 End: 11-08-2024 Follow-up encounter Cl Hidalgo MD Work Phone: [facility] Therapy at [facility] Comment on above: Stress incontinence (female) (male) (Primary Dx) Start: 11-08-2024 End: 11-08-2024 ambulatory CL HIDALGO [facility] Start: 11-02-2024 End: 11-02-[address] Cl Hidalgo MD Work Phone: [facility] Work Phone: Start: 11-02-2024 End: 11-02-[address] Cl Hidalgo MD -Outpatient Breast Imaging Work Phone: Start: 11-02-2024 End: 11-02-2024 ambulatory Cl Hidalgo Facility:[facility] Start: 10-28-2024 End: 10-28-2024 Initial preventive medicine new patient 40-64yrs Elizabeth Hebert MD Work Phone: [facility] Obstetrics and Gynecology - [place] Comment on above: Encounter for gyneco logical examination without abnormal finding (Primary Dx); Encounter for screening mammogram for malignant neoplasm of breast; PCB (post coital bleeding); Cervix abnormality Start: 10-28-2024 End: 10-28-2024 Patient encounter status Elizabeth Hebert MD Work Phone: [facility] Work Phone: Start: 10-28-2024 End: 10-28-2024 ambulatory ELIZABETH HEBERT [facility] Start: 10-28-2024 End: 10-28-2024 Encounter for gynecological examination (general) (routine) without abnormal findings [employer] HEBERT [facility] Start: 10-11-2024 End: 10-11-2024 Follow-up encounter Cl Hidalgo MD Work Phone: [facility] Comment on above: Stress incontinence (female) (male) (Primary Dx) Start: 10-11-2024 End: 10-11-2024 ambulatory CL [facility] Start: 10-04-2024 End: 10-04-2024 ambulatory CL HIDALGO [facility] Start: 10-04-2024 End: 10-04-2024 Follow-up encounter Cl Hidalgo MD Work Phone: [facility] Comment on above: Stress incontinence (female) (male) (Primary Dx) Start: 10-02-2024 End: 10-02-2024 ambulatory Cl Hidalgo MD Work Phone: [facility] Therapy at [facility] Comment on above: Stress incontinence (female) (male) Start: 09-14-2024 End: 12-14-2024 Transcribe Orders Cl Hidalgo MD Work Phone: [facility] Central Scheduling Comment on above: Stress incontinence (female) (male) (Primary Dx) Start: 03-19-2024 End: 03-19-2024 Telephone encounter Toney Craft MD Work Phone: [facility] Comment on above: Appointment Start: 03-15-2024 End: 03-15-2024 Telephone encounter Toney Craft MD Work Phone: [facility] Start: 03-13-2024 End: 03-13-2024 Emergency department [facility] Facility:[facility] Procedures Date Procedure Procedure Detail Performing Clinician Start: 11-02-2024 End: 11-02-[address] Cl Juarez Work Phone: Start: 10-28-2024 Microscopic observat ion [Identifier] in Cervix by Cyto stain Reyna Wright PT Start: 03-08-2020 Microscopic observat ion [Identifier] in Cervix by Cyto stain Reyna Wright PT Plan of Treatment Date Care Activity Detail Author Start: 2054 RSV Immunization for Adults (1 - 1-dose 75+ series) RSV Immunization for Adults (1 - 1-dose 75+ series) [facility] Start: 03-13-2034 DTaP/Tdap/Td Vaccine s (2 - Td or Tdap) DTaP/Tdap/Td Vaccines (2 - Td or Tdap) [facility] Start: 10-28-2029 Screening for malign ant neoplasm of cervix [facility] Start: 2029 Zoster Vaccines (1 o f 2) Zoster Vaccines (1 of 2) [facility] Start: 10-29-2027 Screening for malign ant neoplasm of cervix Pap Smear [facility] Start: 11-02-2025 Screening for malign ant neoplasm of breast Mammogram [facility] Start: 03-08-2025 Screening for malign ant neoplasm of cervix [facility] Start: 2025 Influenza vaccination Influenz a Vaccine (Season Ended) [facility] Start: 02-16-2025 End: 02-16-2025 Patient encounter procedure 02/16/2025 10:45 AM EDT Office Visit [facility] Obstetrics and Gynecology [facility] [address] [place] [address] Anastacia Castellanos MD [address] [place] [address] [facility] Obstetrics and Gyne[facility] Start: 02-01-2025 End: 02-01-2025 Admission to same day surgery center 02/01/2025 1:30 PM EDT - 02/01/2025 3:00 PM EDT Surgery [facility] OR [address] [place] [id number] Anastacia Castellanos MD [address] [place] [address] HYSTEROSCOPY, DILATION AND CURETTAGE [15005 (CPT )] [facility] Comment on above: HYSTEROSCOPY, DILATI ON AND CURETTAGE [23626 (CPT )] Start: 02-01-2025 End: 02-01-2025 Biopsy cervix single/mult/excision of lesion spx BIOPSY, CERVIX Other specified noninflammatory disorders of cervix uteri Irregular menstruation, unspecified 02/01/2025 1:30 PM EDT [facility] Operating Room Start: 02-01-2025 End: 02-01-2025 Hysteroscopy bx endometrium&/polypc w/wo d&c HYSTEROSCOPY, WITH POLYPECTOMY OF UTERUS Other specified noninflammatory disorders of cervix uteri Irregular menstruation, unspecified 02/01/2025 1:30 PM EDT [facility] Operating Room Start: 02-01-2025 End: 02-01-2025 Myomectomy 1-4 myomas 250 gm/< vaginal appr MYOMECTOMY, UTERUS, VAGINAL APPROACH Other specified noninflammatory disorders of cervix uteri Irregular menstruation, unspecified 02/01/2025 1:30 PM EDT [facility] Operating Room Start: 02-01-2025 Subsequent hospital visit by physician [facility] Start: 01-24-2025 End: 01-24-2025 Admission to establishment 01/24/2025 9:30 AM EDT Pre-Admission Testing [facility] Pre-Admit Testing [address] [place] [address] [facility] Start: 01-24-2025 End: 01-24-2025 Patient encounter procedure 01/24/2025 8:30 AM EDT Office Visit [facility] [address] [place] [id number] [facility] Start: 12-06-2024 End: 12-06-2024 Patient encounter procedure 12/06/2024 12:15 PM EDT Office Visit [facility] Obstetrics and Gynecology - [place] [address] [place] [address] Anastacia Castellanos MD [address] [place] [address] [address] [place] [address] [facility]s [facility] Gy[facility]cology - [place] Start: 12-06-2024 End: 12-06-2024 ambulatory 12/06/2024 9:15 AM EDT Evaluation [facility] at [address] [place] [address] Reyna Wright, PT [facility] Start: 11-17-2024 End: 11-17-2024 Patient encounter procedure 11/17/2024 8:15 AM EDT Office Visit [facility] Ob[facility]etrics [facility] Gynecology - [place] [address] [place] [address] Elizabeth Hebert MD [address] [place] [address] [facility] Ob[facility]etrics [facility] Gynecology - [place] Start: 11-10-2024 End: 11-10-2024 Patient encounter procedure 11/10/2024 10:00 AM EDT Procedure Visit [facility] Ob[facility]s [facility] Gynecology - [place] [address] [place] [address] Elizabeth Hebert MD [address] [place] [address] [facility]s [facility]cology - [place] Start: 11-08-2024 End: 11-08-2024 Follow-up encounter 11/08/2024 2:45 PM EDT Follow-Up [facility] at [address] [place] [phone] Cl Hidalgo MD [address] [place] [phone] Reyna Wright, PT [facility] Therapy at [facility] Start: 11-01-2024 End: 11-01-2024 Follow-up encounter 11/01/2024 9:15 AM EDT Follow-Up [facility] Therapy at [address] [place] [phone] Cl Hidalgo MD [address] [place] [phone] Reyna Wright, PT [facility] at [facility] Start: 10-28-2024 End: 10-28-2024 Patient encounter procedure 10/28/2024 8:30 AM EDT Office Visit [facility] Ob[facility]etrics [facility] Gynecology - [place] [address] [place] [address] Elizabeth Hebert MD [address] [place] [address] [facility] Obstetrics [facility] Gynecology - [place] Start: 10-18-2024 End: 10-18-2024 Follow-up encounter 10/18/2024 9:15 AM EDT Follow-Up [facility] Therapy at [address] [place] [phone] Reyna Wright, PT [facility] Therapy at [facility] Start: 10-11-2024 End: 10-11-2024 Follow-up encounter 10/11/2024 9:15 AM EDT Follow-Up [facility] Therapy at [address] [place] [phone] Reyna Wright, PT [facility] Therapy at [facility] Start: 10-04-2024 End: 10-04-2024 Follow-up encounter 10/04/2024 9:15 AM EDT Follow-Up [facility] Therapy at [address] [place] [phone] Reyna Wright, PT [facility] at [facility] Start: 02-22-2024 COVID-19 Vaccine ( season) COVID-19 Vaccine () [facility] Start: 03-08-2023 Screening for malign ant neoplasm of cervix Pap Smear [facility] Start: 2019 Screening for malign ant neoplasm of breast Mammogram [facility] Start: 1998 Hepatitis B Vaccines (1 of 3 - 19+ 3-dose series) Hepatitis B Vaccines (1 of 3 - 19+ 3-dose series) [facility] Start: 1997 Hepatitis C screening Hepatitis C Sc reening [facility] Start: 1991 Depression Screening Depression Scre ening [facility] Start: 02-22-1980 MMR Vaccines (1 of 1 - Standard series) MMR Vaccines (1 of 1 - Standard series) [facility] Start: 1979 HIV screening HIV Screening [facility] Start: 1979 Screening for malign ant neoplasm of colon [facility] Biopsy cervix single/mult/excision of lesion spx BIOPSY, CERVIX Other specified noninflammatory disorders of cervix uteri Irregular menstruation, unspecified [facility] Operating Room Cytology Cervical or vaginal smear or scraping study Pap Smear Pathology and Cytology Routine Encounter for gynecological examination without abnormal finding Ordered: 10/28/2024 [facility] Work Phone: Comment on above: Ordered: 10/28/2024 Hysteroscopy bx endometrium&/polypc w/wo d&c HYSTEROSCOPY, WITH POLYPECTOMY OF UTERUS Other specified noninflammatory disorders of cervix uteri Irregular menstruation, unspecified [facility] Operating Room Myomectomy 1-4 myoma s 250 gm/< vaginal appr MYOMECTOMY, UTERUS, VAGINAL APPROACH Other specified noninflammatory disorders of cervix uteri Irregular menstruation, unspecified [facility] Operating Room Tissue exam Tissue exam Path ology and Cytology Routine Cervix abnormality Ordered: 11/10/2024 [facility] Work Phone: Comment on above: Ordered: 11/10/2024 Immunizations Immunization Date Immunization Notes Care Provider Fa cility 03-13-2024 tetanus toxoid, redu ken diphtheria toxoid, and acellular pertussis vaccine, adsorbed Toney Craft MD Work Phone: [facility] Work Phone: Payers Date Payer Category Payer Self-pay 2024 Private Health Insurance [id number] Unknown [id number] Unknown [id number] Unknown [id number] Social History Date Type Detail Facility Start: [facility]-13-[facility]24 [facility] Start: 03-13-2024 Tobacco use and exposure Smoke less tobacco non-user [facility] Start: 03-13-2024 Alcoholic beverage intake Life time non-drinker (finding) [facility] Start: 03-13-2024 End: 10-28-2024 History of Social function [facility] Start: 03-13-2024 End: 10-28-2024 Tobacco use panel [facility] National Score (1-10 0), lower number is lower risk 34 [facility] Start: 1980 Sex assigned at Not on file [facility] Start: 10-02-2024 End: 12-06-2024 Alcoholic beverage intake Current drinker of alcohol (finding) [facility] Start: 01-21-2022 Sex Female (finding) [facility] Start: 04-11-2022 Gender identity Identifies as female gender (finding) [facility] Has the [employer], [employer], oil, or water company threatened to shut off services in your home in past 12Mo No [facility] Do you belong to any clubs or organizations such as mandaen groups, unions, fraternal or athletic groups, or school groups? Yes [facility] Are you now , , , , never or living with a partner? [facility] How often to you hav e a drink containing alcohol? Never [facility] Do you feel stress - tense, restless, nervous, or anxious, or unable to sleep at night because your mind is troubled all the time - these days [OSQ] Not at all [facility] (I/We) worried wheth er (my/our) food would run out before (I/we) got money to buy more. Never true [facility] Tobacco smoking stat us NVIS Unknown if ever smoked [facility] Work Phone: Start: 1980 Sex Assigned At Female W [facility] Functional Status Date Assessment Result Facility 10-28-2024 Total score [AUDIT-C] 0 10/29/19 7:37 AM EDT Starr [place] [facility] 10-28-2024 How often to you hav e a drink containing alcohol? Never 10/28/2024 7:37 AM EDT [place] [place] Never [facility] 10-28-2024 Functional status Patient does n ot drink 10/28/2024 7:37 AM EDT Tomás Generic Patient does not drink [facility] 10-28-2024 How often do you hav e 6 or more drinks on 1 occasion? Never 10/28/2024 7:37 AM EDStarr Benavidez Never [facility] Clinical Notes 03-15-2024 to 12-14-2024 Telephone Encounter - [facility] - 12/14/2024 3:49 PM EDTTelephone Encounter - [facility] - 12/14/2024 3:49 PM EDTTelephone Encounter - [facility] - 12/13/2024 2:09 PM EDT Note Date & Type Note Facility 12-14-2024 Telephone encount er Note Surgery scheduled 02/01. Sent [employer] message with all appts/info. Spoke w/ pt to confirm. [facility] 12-14-2024 Miscellaneous Notes Formattin g of this note might be different from the original. Surgery scheduled 02/01. Sent MyChart message with all appts/info. Spoke w/ pt to confirm. documented in this encounter [facility] 12-13-2024 Telephone encount er Note Spoke to pt, scheduling in process. [facility] 12-13-2024 Miscellaneous Notes Formattin g of this note might be different from the original. Spoke to pt, scheduling in process. Message released to patient as written. Patient's further questions if applicable: Patient returning call regarding surgery scheduling. Patient requesting call back. Please Advise Were all questions from office addressed or relayed to the patient from encounter: Yes [facility] my direct line, will follow in surgery orders. Surgery Orders just rec'd today from Dr. Castellanos. Pt is on my list for scheduling. Will contact pt for scheduling. Name of caller: Emerald Richardson Contact phone number: [phone] Relationship to Patient: patient Provider: Dr. Castellanos Practice: [facility] Chief Complaint/Reason for Call: Pt stated that at the appointment on 12/06/2024 the provider discussed surgery for a polypectomy. Pt is requesting a call back to schedule surgery. Please advise. Best time of day caller can be reached: Any Patient advised that office/PCP has 24-48 business hours to return their call: Yes documented in this encounter [facility] 12-13-2024 Telephone encount er Note Message released to patient as written. Patient's further questions if applicable: Patient returning call regarding surgery scheduling. Patient requesting call back. Please Advise Were all questions from office addressed or relayed to the patient from encounter: Yes [facility] 12-13-2024 Telephone encount er Note [facility] my direct line, will follow in surgery orders. [facility] 12-08-2024 Telephone encount er Note Surgery Orders just rec'd today from Dr. Castellanos. Pt is on my list for scheduling. Will contact pt for scheduling. [facility] 12-08-2024 Telephone encount er Note Name of caller: Emerald Richardson Contact phone number: [phone] Relationship to Patient: patient Provider: Dr. Castellanos Practice: [facility] Chief Complaint/Reason for Call: Pt stated that at the appointment on 12/06/2024 the provider discussed surgery for a polypectomy. Pt is requesting a call back to schedule surgery. Please advise. Best time of day caller can be reached: Any Patient advised that office/PCP has 24-48 business hours to return their call: Yes [facility] 12-06-2024 History of Presen t illness Narrative A cake knocker was offered to be present during her exam. The patient: declined Pt here for surgical consult for due to polyp. She is having abnormal bleeding. Images from the original note were not included. Emerald Richardson 12/06/2024 44 y.o. Chief Complaint Patient presents with Surgical Consult Primary Care Physician: Cl Hidalgo MD HPI: Emerald Richardson is a 44 y.o. female presents for consult. Patient had well woman appt last month with Dr. Hebert. Reported irregular and postcoital bleeding. Found to have cervical mass on exam. Had AUB in the past. Last US 2020 showed 10cm uterus with 1cm intramural fibroid. Medical History[1] Surgical History[2] Family History[3] OB History Para Term AB Living 4 4 4 4 SAB IAB Ectopic Multiple Live Births 4 # Outcome Date GA Lbr Ravi/2nd Weight Sex Type Anes PTL Lv 4 Term 05/2006 40w0d F Vag-Spont JAIRON 3 Term 09/2004 40w0d M Vag-Spont JAIRON 2 Term 10/2002 39w0d F Vag-Spont JAIRON 1 Term 07/2001 39w0d M Vag-Spont JAIRON MEDICATIONS: Current Medications[4] ALLERGIES: Allergies as of 12/06/2024 - Reviewed 12/06/2024 Allergen Reaction Noted Sulfa antibiotics Hives and Rash 05/04/2015 REVIEW OF SYSTEMS Review of Systems Genitourinary: Positive for menstrual problem and vaginal bleeding. Negative for pelvic pain and vaginal discharge. PHYSICAL EXAMINATION: BP 97/62 Pulse 71 Wt 140 lb (63.5 kg) BMI 22.60 kg/m Physical Exam Constitutional: General: She is not in acute distress. Appearance: Normal appearance. She is not ill-appearing, toxic-appearing or diaphoretic. HENT: Head: Normocephalic and atraumatic. Nose: Nose normal. Eyes: Extraocular Movements: Extraocular movements intact. Conjunctiva/sclera: Conjunctivae normal. Pupils: Pupils are equal, round, and reactive to light. Pulmonary: Effort: Pulmonary effort is normal. No respiratory distress. Chest: Breasts: Antwon Score is 5. Abdominal: Palpations: Abdomen is soft. Genitourinary: General: Normal vulva. Antwon stage (genital): 5. Labia: Right: No rash, tenderness, lesion or injury. Left: No rash, tenderness, lesion or injury. Urethra: No prolapse, urethral swelling or urethral lesion. Vagina: Normal. Cervix: No cervical motion tenderness. Musculoskeletal: Right lower leg: No edema. Left lower leg: No edema. Lymphadenopathy: Cervical: No cervical adenopathy. Upper Body: Right upper body: No supraclavicular or axillary adenopathy. Left upper body: No supraclavicular or axillary adenopathy. Skin: General: Skin is warm and dry. Coloration: Skin is not jaundiced. Neurological: General: No focal deficit present. Mental Status: She is alert and oriented to person, place, and time. Psychiatric: Mood and Affect: Mood normal. Behavior: Behavior normal. Thought Content: Thought content normal. Judgment: Judgment normal. ASSESSMENT: Diagnosis Plan 1. PCB (post coital bleeding) 2. Cervical mass PLAN: - Mass looks benign in appearance, suspect either cervical polyp or fibroid. Given size I recommended removal under anesthesia. We discussed pursing hysteroscopy at the same time to evaluate endometrial lining. Counseled on procedure and risks such as infection, bleeding, damage to visceral/vascular structures, and uterine perforation requiring conversion to more invasive procedure. All of her questions answered to the best of my ability [1] History reviewed. No pertinent past medical history. [2] Past Surgical History: Procedure Laterality Date ANKLE SURGERY Right 2020 [3] Family History Problem Relation Name Age of Onset Stroke Paternal Grandfather Heart disease Maternal Grandfather Hypertension Maternal Grandfather Heart failure Father Hypertension Mother Thyroid disease Mother Other ([id number]) Other No family hx of MM. [4] No current outpatient medications on file. No current facility-administered medications for this visit. documented in this encounter [facility] 11-10-2024 History of Presen t illness Narrative A cake knocker was offered to be present during her exam. The patient: Declined. Images from the original note were not included. Emerald Richardson 11/10/2024 44 y.o. Chief Complaint Patient presents with Procedure Cervical Bx HPI: HPI 44 y.o. here for cervical biopsy She has been having postcoital bleeding Menses are monthly but will have spotting starting 1 week prior 2024 pap and HPV negative Narrative & Impression History ------- Age: 41 LMP: 05/11/21 Day Of Cycle: 14 Hx Comments Non latex cover used. Uterus ------ Uterus: Present Position: Anteverted Size (cm) L: 10.42 W: 7 H: 5.9 Description: There is a hypoechoic mass in the uterine parenchyma. This most likely represents a fibroid. Myomas ------ Site L(cm) W(cm) D(cm) Location Posterior left body 0.93 1.01 0.72 Intramural Blood Flow RI PI Comments Endometrium Comment: The endometrial complex measures 10.14 mm. See comments below. Cervix ------ Multiple cervical cysts are noted. [place] No free fluid was visualized Right Ovary Status: Normal Size (cm) L: 3.1 W: 2.49 H: 1.63 Vol.(ml): 6.59 Left Ovary Status: Visualized Size (cm) L: 4.68 W: 2.93 H: 2.85 Vol.(ml): 20.46 Comment: The left ovary has a 2.36 x 1.82 x 2.19 cm cyst with a 1.27 x 1.11 x 1.19 cm daughter cyst. Comments -------- Dr. Hebert inserted a Unisem catheter through the cervical os. Sterile saline was injected under direct ultrasound visualization. The endometrial cavity distended well and revealed a normal appearing lining. The anterior wall = 5 mm, posterior wall = 4.5 mm. IMPRESSION: Impression During SIS, the endometrial cavity distended well and revealed a normal appearing lining. The anterior wall = 5 mm, posterior wall = 4.5 mm. Probable uterine fibroid. The left ovary has a 2.36 x 1.82 x 2.19 cm cyst with a 1.27 x 1.11 x 1.19 cm daughter cyst. Clinical correlation is recommended. The patient is scheduled to see Dr. Hebert following ultrasound. PMH: has no past medical history on file. PHYSICAL EXAM Vitals: 11/10/24 1009 BP: 92/60 Pulse: 73 Body mass index is 22.11 kg/m . Physical Exam Constitutional: Appearance: Normal appearance. HENT: Head: Normocephalic and atraumatic. Pulmonary: Effort: Pulmonary effort is normal. Genitourinary: Neurological: Mental Status: She is alert and oriented to person, place, and time. Psychiatric: Mood and Affect: Mood normal. Behavior: Behavior normal. ASSESSMENT/PLAN Emerald was seen today for procedure. Diagnoses and all orders for this visit: Cervix abnormality (Primary) - Tissue exam Discussed polyp removal, will await path and then have consult with PLASTICS TOOLING ENGINEER surgeron documented in this encounter [facility] 11-08-2024 History of Presen t illness Narrative Images from the original note were not included. [facility] [place] [address] [place] [address] Dept: [phone] Dept PHYSICAL THERAPY TREATMENT Pelvic Health Patient Name: Emerald Richardson : 1980 Date of Service: 11/08/2024 Referring Provider: Cl Hidalgo MD Visit #: 4 Diagnosis: Stress incontinence (female) (male) Mechanism of injury: Pt reports her UI has been gradual in the last couple of years. Pt notes running could cause UI. Gradual progression of UI with coughing/sneezing, running, jumping, mild urge UI. Pt denies pain with urination or BM or sexual activity Patient Preferences: Prabha Precautions/Red Flags: None Subjective Pt states things are going well and she is doing more Kegel's. Pt states she feels maybe less UI with less occurences. Nocturia: 0 x /night, day time frequency every 2 hours, but increased with bladder irritants/coffee Compliance with HEP: Yes Objective Objective measurements not taken today. Treatment Therapeutic Activity # of Activities: 4 Therapeutic Activity 1: diaphragmatic breathing 11/08/24: Pt is independent Activity 1 Comment: Pt to work on triggers Therapeutic Activity 2: PF Strengthening 11/08/24: Progressed to combination Kegel Activity 2 Comment: Progressed to Combination & Advanced Kegel's to improve co-ordination and response time of PF mm's, maximizing incorporation of slow & fast twitch mm fibers for improved function to reduce /eliminate UI. Verbal & written information provided with demonstration in clinic. Therapeutic Activity 3: Core re-educaitonal exercises 11/08/24 progressed Activity 3 Comment: Single Bridges PPT W/ single august, blue T-band hip ER. 3 x 10 reps performed in clinic today. updated med bridge Therapeutic Activity 4: Bladder [id number] to work on day time urinary urgency11/08/24 every 2 hours , but coffee is a bladder irritant Activity 4 Comment: 11/08/24 Pt feels her UI is more trigger related recently than activity. Home Exercise Program: Progressed home exercise program Assessment Skilled physical therapy interventions utilized to improve patient s impairments and work towards established goals. Patient response to treatment: Pt is making progress with normalized bladder frequency, reducing UI with stressors, but having UI with triggers. Patient will benefit from continued physical therapy to address PF/bladder dysfunctions to eliminate UI and improve overall quality of life. The rationale for today s treatment was explained to the patient. Verbal cues were provided for correct form with all exercises. Advised patient to continue with Home Exercise Program (HEP). Goals General/Ortho Patient will be independent with HEP. (Progressing) Start: 10/02/24 Expected End: 01/01/25 Patient will increase strength in core to 4/5 to be able to improve PF function to eliminate UI (Progressing) Start: 10/02/24 Expected End: 01/01/25 Pelvic Health Pt will reduce summary score on gender appropriate NIH-CPSI to 6/45 to improve patient's perceived quality of life (Progressing) Start: 10/02/24 Expected End: 01/01/25 Pt will reduce use of pads to 0 pads per day (Progressing) Start: 10/02/24 Expected End: 01/01/25 Pt will reduce urinary incontinence to complete elimination (Progressing) Start: 10/02/24 Expected End: 01/01/25 Plan Plan for next session: Progress Kegel and core exercises as tolerated. Pt to focus on advanced Kegel's, bladder re-training/trigger responses and core and follow up in 4 weeks on 12/06/24. Time Entry Total Treatment Time Start Time: 1451 Stop Time: 1519 Time Calculation (min): 28 min PT Therapeutic Procedures Time Entry Therapeutic Activity Time Entry: 28 Reyna Wright PT documented in this encounter [facility] 10-28-2024 History of Presen t illness Narrative A cake knocker was offered to be present during her exam. The patient: declined Emerald Richardson 10/28/2024 44 y.o. Primary Care Physician: Cl Hidalgo MD Chief Complaint Patient presents with Annual Exam HPI : Emerald Richardson is a 44 y.o. female here for annual exam Gynecologic History: Patient's last menstrual period was 10/18/2024 (exact date). Menses occur regular every 28-30 days. Flow is moderate, sometimes heavy flow. Intermenstrual bleeding: Yes- postcoital bleeding normal endometrium < 1 cm IM fibroid Plan was for colposcopy Dysmenorrhea: none Contraception: Condoms OB History Para Term AB Living 4 4 4 4 SAB IAB Ectopic Multiple Live Births 4 # Outcome Date GA Lbr Ravi/2nd Weight Sex Type Anes PTL Lv 4 Term 05/2006 40w0d F Vag-Spont JAIRON 3 Term 09/2004 40w0d M Vag-Spont JAIRON 2 Term 10/2002 39w0d F Vag-Spont JAIRON 1 Term 07/2001 39w0d M Vag-Spont JAIRON Preventative Health Testing: Date of Last Pap Smear: 02/2020 neg pap and HPV Abnormal Pap Smear History: none Date of Last Mammogram: scheduled Date of Last Colonoscopy: scheduled ray History reviewed. No pertinent past medical history. Past Surgical History: Procedure Laterality Date ANKLE SURGERY Right 2020 Family History Problem Relation Name Age of Onset Stroke Paternal Grandfather Heart disease Maternal Grandfather Hypertension Maternal Grandfather Heart failure Father Hypertension Mother Thyroid disease Mother Other ([id number]) Other No family hx of MM. Social History Socioeconomic History Marital status: Spouse name: Not on file Number of children: Not on file Years of education: Not on file Highest education level: Not on file Occupational History Not on file Tobacco Use Smoking status: Never Smokeless tobacco: Never Substance and Sexual Activity Alcohol use: Yes Alcohol/week: 2.0 standard drinks of alcohol Drug use: Not on file Sexual activity: Yes Partners: Male control/protection: Condom Male Other Topics Concern Not on file Social History Narrative Merged History Encounter Social Drivers of Health Financial Resource Strain: Low Risk (10/28/2024) Overall Financial Resource Strain (CARDIA) Difficulty of Paying Living Expenses: Not hard at all Food Insecurity: No Food Insecurity (10/28/2024) Hunger Vital Sign Worried About Running Out of Food in the Last Year: Never true Ran Out of Food in the Last Year: Never true Transportation Needs: No Transportation Needs (10/28/2024) PRAPARE - Transportation Lack of Transportation (Medical): No Lack of Transportation (Non-Medical): No Physical Activity: Sufficiently Active (10/28/2024) Exercise Vital Sign Days of Exercise per Week: 5 days Minutes of Exercise per Session: 30 min Stress: No Stress Concern Present (10/28/2024) [employer] - Occupational Stress Questionnaire Feeling of Stress : Not at all Social Connections: Socially Integrated (10/28/2024) Social Connection and Isolation Panel [NHANES] Frequency of Communication with Friends and Family: More than three times a week Frequency of Social Gatherings with Friends and Family: More than three times a week Attends Sabianist Services: More than 4 times per year Active Member of Clubs or Organizations: Yes Attends Club or Organization Meetings: More than 4 times per year Marital Status: Intimate Partner Violence: Not on file Housing Stability: Low Risk (10/28/2024) Housing Stability Vital Sign Unable to Pay for Housing in the Last Year: No Number of Times Moved in the Last Year: 0 Homeless in the Last Year: No MEDICATIONS: No current outpatient medications on file. No current facility-administered medications for this visit. ALLERGIES: Allergies as of 10/28/2024 - Reviewed 10/28/2024 Allergen Reaction Noted Sulfa antibiotics Hives and Rash 05/04/2015 REVIEW OF SYSTEMS: CONSTIUTIONAL: No weight change or fatigue CV: No Chest Pain with Exertion, Palpitations, Syncope, Edema, Arrhythmia RESPIRATORY: No SOB or Cough, BREAST: No breast abnormalities or lumps GI: No Indigestion, Heartburn, Nausea, vomiting, Diarrhea, Constipation,Bloating or Bowel Changes; No Bloody Stools or melena : No Dysuria, Hematuria or Nocturia. No Urinary Incontinence or Vaginal Discharge, NEURO: No CVA, Migraines,Seizure Hx, or Limb Weakness DERM: No Rash, Itching, Mole Changes or Cancer PSYCH: No Depression, Homicidal thoughts,suicidal thoughts, or anxiety MUSCULOSKELETAL: No Arthralgia or Arthritis HEME and LYMPH :No Lymphoma, Von Willebrand's, Hemophillia or Bleeding History PHYSICAL EXAM: Vitals: 10/28/24 0822 BP: 96/64 Pulse: 81 Weight: 140 lb (63.5 kg) Height: 5' 4 (1.626 m) Body mass index is 24.03 kg/m . 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 EXTERNAL GENITALIA: normal female structures VAGINA: normal ruggae, no lesions CERVIX: 10-12 oclock with white well demarcated lesion ~ 3 cm UTERUS: normal mobility, nontender, normal size, shape and consistency. ADNEXA: normal, non tender no masses. URETHRA: normal. nontender BLADDER: non tender. PELVIC SUPPORT DEFECTS: Normal support of vagina, uterus, and bladder ANUS/PERINEUM: no hemorrhoids, masses or warts noted. GENERAL EXAM CONSTITUTIONAL: Well developed, well nourished, well groomed. no acute distress NECK: no thyromegaly, supple. CARDIOVASCULAR: normal rate and rhythm, no edema LUNGS: Normal effort, normal lung sounds ABDOMEN:soft, non-tender, non-distended, no hepatospleenomegaly NEUROLOGICAL: no gross motor or sensory deficits noted. . LYMPH NODES: no lymphadenapathy axillary or inguinal. SKIN: intact, dry MUSCULOSKELETAL: normal gait, no cyanosis. PSYCHIATRIC Normal mood and affect, A&O x3. ASSESSMENT/PLAN: Emerald was seen today for annual exam. Diagnoses and all orders for this visit: Encounter for gynecological examination without abnormal finding (Primary) - Pap Smear Encounter for screening mammogram for malignant neoplasm of breast - orders through PCP. Scheduled PCB (post coital bleeding) Cervix abnormality - plan biopsy Follow up in about 2 weeks (around 11/11/2024) for Recheck. Routine health maintenance per patients PCP. documented in this encounter [facility] 10-11-2024 History of Presen t illness Narrative Images from the original note were not included. [facility] AT [address] [place] [address] Dept: [phone] Dept PHYSICAL THERAPY TREATMENT Pelvic Health Patient Name: Emerald Richardson : 1980 Date of Service: 10/11/2024 Referring Provider: Cl Hidalgo MD Visit #: 3 Diagnosis: Stress incontinence (female) (male) Mechanism of injury: Pt reports her UI has been gradual in the last couple of years. Pt notes running could cause UI. Gradual progression of UI with coughing/sneezing, running, jumping, mild urge UI. Pt denies pain with urination or BM or sexual activity Patient Preferences: Prabha Precautions/Red Flags: None Subjective Pt reports challenged with completing Kegel's in sitting and standing, easier in supine. Compliance with HEP: Yes Objective Objective measurements not taken today. Treatment Therapeutic Activity # of Activities: 4 Therapeutic Activity 1: diaphragmatic breathing 10/11/24: verbal review Therapeutic Activity 2: PF Strengthening 10/11/24: Progressed to endurance Kegel starting with 5 seconds and progressing to a 10 second hold. Pt challenged with Kegel in sitting and standing Activity 2 Comment: Quick Kegel: to improve PF awareness, increase blood flow and re-educate Pelvic Floor muscles for isloated contraction. Therapeutic Activity 3: Core re-educaitonal exercises Activity 3 Comment: Bridges W/ O UE support, PPT W/ TrA activation, Green T-band hip ER. 3 x 10 reps performed in clinic today.Discussed rational and importance of HEP for program carryover and maximal benefit of rehab. Patient demonstrated exercises to ensure proper technique and clinician provided verbal and written information. Exercises inputted into [employer]. Therapeutic Activity 4: Bladder [id number] to work on day time urinary urgency 10/11/24 working on 2 hours, but coffe and tea are bladder irritants Home Exercise Program: Progressed home exercise program Assessment Skilled physical therapy interventions utilized to improve patient s impairments and work towards established goals. Patient response to treatment: Patient is making progress toward goals with compliance with HEP, reducing urinary frequency, increasing PF mm awareness. Pt still challenged with completing Kegel in sitting and standing. Pt able to demonstrate good TrA engagement with instructions. Pt appropriately challenged with exercises in clinic today Patient will benefit from continued physical therapy to address PF/bladder dysfunctions to eliminate stress UI and improve overall quality of life. The rationale for today s treatment was explained to the patient. Verbal cues were provided for correct form with all exercises. Advised patient to continue with Home Exercise Program (HEP). Goals General/Ortho Patient will be independent with HEP. (Progressing) Start: 10/02/24 Expected End: 01/01/25 Patient will increase strength in core to 4/5 to be able to improve PF function to eliminate UI (Progressing) Start: 10/02/24 Expected End: 01/01/25 Pelvic Health Pt will reduce summary score on gender appropriate NIH-CPSI to 6/45 to improve patient's perceived quality of life (Progressing) Start: 10/02/24 Expected End: 01/01/25 Pt will reduce urinary frequency to voiding once every 2-4 hours each day to reduce disruptions to home and work activities (Progressing) Start: 10/02/24 Expected End: 01/01/25 Pt will reduce use of pads to 0 pads per day (Progressing) Start: 10/02/24 Expected End: 01/01/25 Pt will reduce urinary incontinence to complete elimination (Progressing) Start: 10/02/24 Expected End: 01/01/25 Plan Plan for next session: Progress Kegel & core exercises as tolerated. Pt to focus on endurance Kegel, core and bladder re-training principles and follow up in 3 weeks on 11/01/24 9:15 AM. Time Entry Total Treatment Time Start Time: 915 Reyna Wright PT documented in this encounter [facility] 10-04-2024 History of Presen t illness Narrative Images from the original note were not included. [facility] [place] [facility] TH[facility] AT [address] [place] [address] Dept: [phone] Dept PHYSICAL THERAPY TREATMENT Pelvic Health Patient Name: Emerald Richardson : 1980 Date of Service: 10/04/2024 Referring Provider: Cl Hidalgo MD Visit #: 2 Diagnosis: Stress incontinence (female) (male) Mechanism of injury: Pt reports her UI has been gradual in the last couple of years. Pt notes running could cause UI. Gradual progression of UI with coughing/sneezing, running, jumping, mild urge UI. Pt denies pain with urination or BM or sexual activity Patient Preferences: Prabha Precautions/Red Flags: None Subjective Pt working on urge suppression and notes able to hold better. Compliance with HEP: Yes Objective Pelvic Floor Assessment Special tests Skin observation: healthy & pink Vaginal Wall Weakness Anterior wall: mild Posterior wall: none Observations: with supine bulge activity Pelvic Floor Muscle testing Modified [place]cock: Layer 1: 2/5 Layer 2: 2/5 Layer 3: 1/5 Endurance: 2 seconds Contraction quality: Fair: pt able to recruit all 3 PF mm layers, but moderate weakness with decreased strength & endurance noted. Relaxation quality: good Voluntary excursion quality: good Resting position: WNL Palpation Myofascial mobility: WNL Soft tissue: non tender ESTEBAN Tenderness 0-no tenderness 1-complaint of pain 2-Pain w/wincing 3-Pain w/ withdrawal 4- Unable to palpate Guarding 0-No guarding 1-Mild 2- Moderate 3-Severe Spasm 0-No spasm 1-Mild 2-Moderate 3-Severe Mobility 0-No change 1-Mild 2-Moderate 3-Severe Muscles/Soft tissue Left Right Left Right Left Right Left Right Bulbocavernosus 0 0 0 0 0 0 0 0 Coccygeus 0 0 0 0 0 0 0 0 Iliococcygeus 0 0 0 0 0 0 0 0 Ischiocavernosus 0 0 0 0 0 0 0 0 Levator Ani 0 0 0 0 0 0 0 0 Obturator Internus 0 0 0 0 0 0 0 0 Pelvic Clock 12-3 0 X X X X X X X Pelvic Clock 3-6 0 X X X X X X X Pelvic Clock 6-9 X 0 X X X X X X Pelvic Clock 9-12 X 0 X X X X X X Perineal body 0 0 X X X X 0 0 Pubococcygeus 0 0 0 0 0 0 0 0 Puborectalis 0 0 0 0 0 0 0 0 Transverse Perineal 0 0 0 0 0 0 0 0 Transverse Perineal- Deep 0 0 0 0 0 0 0 0 Bony Structures: 0 0 X X X X X X Treatment Therapeutic Activity # of Activities: 4 Therapeutic Activity 1: diaphragmatic breathing Activity 1 Comment: Diaphragmatic Breathing: Educated patient and discussed rational, use, indications and benefits to: reduce bladder anxiety, stretch/relax PF, reset vagal/ vagus nervous system, lower HR & BP and improve overall lung capacity. Verbal and written information provided with patient demonstration to ensure proper technique Therapeutic Activity 2: PF Strengthening ( add core strengthening next session) Activity 2 Comment: Quick Kegel: to improve PF awareness, increase blood flow and re-educate Pelvic Floor muscles for isloated contraction. Therapeutic Activity 3: Intenral PF mm assessment-10/04/24 completed. See objective section of notes Activity 3 Comment: Initiate next session:Pelvic Floor Assessment: Discussed rational, informed consent*, completion & findings explained. (*Consent for pelvic floor assessment, muscle testing and treatment: Patient received education regarding pelvic floor physical therapy assessment/treatment with use of 3D pelvic floor model for education on relevant pelvic floor anatomy. Assessment and treatment may include an external or internal (visual and/or digital/tactile) approach for assessment/treatment of perineal tissues, pelvic floor and pelvic girdle muscles. Patient provided freely given, reversible, informed, enthusiastic and specific consent for internal pelvic floor muscle assessment and treatment today. Patient understands that they have control of the assessment and treatment, having the opportunity to stop treatment at any time. Patient also provided written consent at initial evaluation. ) Therapeutic Activity 4: Bladder [id number] to work on day time urinary urgency 10/04/24 verbal review and pt noted reduced urinary frequency with urge suppression techniques Activity 4 Comment: Bladder Re-training: Educated patient and discussed Night time strategies, urge suppression. Discussed it takes at least 8 weeks to form a new habit and/or break an old habit. Discussed it can take 8 weeks to re-train muscles and can take 16-20 weeks to hypertrophy muscles. Discussed bladder re-training is a process involving re-programing brain>bladder connections, strengthening PF muscles and habit changes. Pt with verbal understanding and acknowledgement. Verbal & written information provided. Home Exercise Program: Progressed home exercise program Assessment Skilled physical therapy interventions utilized to improve patient s impairments and work towards established goals. Patient response to treatment: Patient is making progress toward goals with reduced urinary frequency. Internal PF mm assessment completed. Pt demonstrated normalized PF mm tone, but decreased PF mm strength /endurance and coordination. Pt able to appropriately recruit all 3 PF mm layers with coordinated breathing. Patient will benefit from continued physical therapy to address PF/bladder dysfunctions to eliminate UI and normalize frequency for improved quality of life. The rationale for today s treatment was explained to the patient. Verbal cues were provided for correct form with all exercises. Advised patient to continue with Home Exercise Program (HEP). Goals General/Ortho Patient will be independent with HEP. (Progressing) Start: 10/02/24 Expected End: 01/01/25 Patient will increase strength in core to 4/5 to be able to improve PF function to eliminate UI (Not Addressed) Start: 10/02/24 Expected End: 01/01/25 Pelvic Health Pt will reduce summary score on gender appropriate NIH-CPSI to 6/45 to improve patient's perceived quality of life (Progressing) Start: 10/02/24 Expected End: 01/01/25 Pt will reduce urinary frequency to voiding once every 2-4 hours each day to reduce disruptions to home and work activities (Progressing) Start: 10/02/24 Expected End: 01/01/25 Pt will reduce use of pads to 0 pads per day (Not Addressed) Start: 10/02/24 Expected End: 01/01/25 Pt will reduce urinary incontinence to complete elimination (Not Addressed) Start: 10/02/24 Expected End: 01/01/25 Plan Plan for next session: Progress Kegel as tolerated, initiate core re-education exercises. Time Entry Total Treatment Time Start Time: 920 Stop Time: 947 Time Calculation (min): 27 min PT Therapeutic Procedures Time Entry Therapeutic Activity Time Entry: Reyna Wright PT documented in this encounter [facility] 10-02-2024 History of Presen t illness Narrative [facility] [place] [facility] AT [address] [place] [address] Dept: [phone] Dept PHYSICAL THERAPY EVALUATION Pelvic Health Patient Name: Emerald Richardson : 1980 Date of Service: 10/02/2024 Referring Provider: Cl Hidalgo MD Visit #: 1 Diagnosis: Stress incontinence (female) (male) General Information Mechanism of injury: Pt reports her UI has been gradual in the last couple of years. Pt notes running could cause UI. Gradual progression of UI with coughing/sneezing, running, jumping, mild urge UI. 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 PSHX: Emerald has no past surgical history on file. Have you experienced any anxiety or depression?: No Have you experienced thoughts of self-harm or suicidal thoughts?: No Social Drivers of Health Reviewed: Yes Physician follow-up appointment?: No Subjective Chief Complaint: UI Pain: Current: 0/10 Best: 0/10 Worst: 0/10 Symptoms Aggravated by: running, jumping, coughing , sneezing, urgency Symptoms Relieved by: stopping activity Prior Level of Function: Independent Current Level of Function: independent but limited d/t UI Patient s Stated Goal: Eliminate UI Additional Specialty Information: PELVIC HEALTH Hx and sx : ; vaginal delivery Urinary Sx Incontinence: mixed a few drops Post-void dribble: No ?? Maybe sometimes Urgency: Yes Aggravating/alleviating factors: coughing/sneezing, jumping, running Voiding frequency: Every 1 hour Nocturia: No , 0/night Sensation of incomplete bladder emptying: Yes Pain associated with bladder and/or voiding: No Use of Protection: Type: panti liner Quantity: 1 x/ day Bowel sx Constipation: No Straining: No Fecal incontinence: No Dietary Water intake: 80+ fl oz/day Dietary irritants: Coffee: 16 oz/day, Tea-iced: 16 oz/day, Sparkling water: 16 oz/day or [place] Questionnaire: NIH-CPSI: female Score: Objective Observations Functional mobility: Independent Ortho screen Posture Pelvic alignment: Pt demonstrating good pelvic alignment Lumbar ROM: WNL Hip ROM: WNL Palpation: Non tender external PF region LQ Strength L R HIP Flexion 5/5 5/5 Extension 5/5 5/5 Abduction 5/5 5/5 KNEE Flexion 5/5 5/5 Extension 5/5 5/5 ANKLE Dorsiflexion 5/5 5/5 Plantarflexion NT/5 NT/5 CORE 3/5- decreased TrA activation Flexibility: LEFT RIGHT Hip Adductors WNL WNL Hip External Rotators MILD MILD Iliopsoas WNL WNL Hamstrings MILD MILD Assessment Emerald is a 44 y.o. patient who presents to PT with a diagnosis of stress UI. Pt demonstrates PF/bladder dysfunctions, decreased core strength, contributing to UI, urinary urgency impairing function and reducing quality of life. . The patient would benefit from skilled physical therapy to address decreased strength, decreased range of motion, soft tissue impairment, impaired functional activities, and PF & bladder dysfunctions . Evaluation complexity is low secondary to: patient has 1-2 personal factors and/or comorbidities that will affect plan of care, therapy will be addressing 3 or more elements, and clinical presentation is evolving. Body Systems Affected: musculoskeletal and neuromuscular Rehab Potential: Good Learning Preferences: demonstration, explanation, performance, and printed materials Barriers to Rehab: chronicity and duration of symptoms Goals General/Ortho Patient will be independent with HEP. (Initiated) Start: 10/02/24 Expected End: 01/01/25 Patient will increase strength in core to 4/5 to be able to improve PF function to eliminate UI (Initiated) Start: 10/02/24 Expected End: 01/01/25 Pelvic Health Pt will reduce summary score on gender appropriate NIH-CPSI to 6/45 to improve patient's perceived quality of life (Initiated) Start: 10/02/24 Expected End: 01/01/25 Pt will reduce urinary frequency to voiding once every 2-4 hours each day to reduce disruptions to home and work activities (Initiated) Start: 10/02/24 Expected End: 01/01/25 Pt will reduce use of pads to 0 pads per day (Initiated) Start: 10/02/24 Expected End: 01/01/25 Pt will reduce urinary incontinence to complete elimination (Initiated) Start: 10/02/24 Expected End: 01/01/25 Plan Frequency and Duration: 1/wk for 12 weeks Therapeutic Contents: client education, home exercise program, manual therapy techniques, neuromuscular re-education, sensory re-education/desensitization, therapeutic activities, modalities as needed, and bladder re-training Plan for next session: Complete internal PF mm assessment, progress Hep as tolerated and further education for optimal pelvic health Risks and benefits were discussed with the patient and/or family, and the patient and/or family participated with the plan of care and agrees. Treatment Patient education with verbal & written information provided for the following: Pathology/Involved Anatomy: Use of 3 D PF model to explain: PF/bladder dysfunctions; Bowel & Bladder Health: Discussed normalized bladder/bowel health vs dysfunctional habits, Normalized urinary frequencies; Bladder Re-training: Discussed Night time strategies, urge suppression Dietary Irritants: Discussed effects of bladder irritants on bladder & urinary urgency Pelvic Floor Assessment: Discussed rational, informed consent*, completion & findings explained. (*Consent for pelvic floor assessment, muscle testing and treatment: Patient received education regarding pelvic floor physical therapy assessment/treatment with use of 3D pelvic floor model for education on relevant pelvic floor anatomy. Assessment and treatment may include an external or internal (visual and/or digital/tactile) approach for assessment/treatment of perineal tissues, pelvic floor and pelvic girdle muscles. Patient provided freely given, reversible, informed, enthusiastic and specific consent for internal pelvic floor muscle assessment and treatment today. Patient understands that they have control of the assessment and treatment, having the opportunity to stop treatment at any time. Patient also provided written consent at initial evaluation. ) Therapeutic Activity # of Activities: 4 Therapeutic Activity 1: Initial Pelvic Health Evaluation Education (diaphragmatic breathing next session) Activity 1 Comment: See above Therapeutic Activity 2: HEP ( add core strengthening next session) Activity 2 Comment: Read over educational packet Therapeutic Activity 3: Intenral PF mm assessment-defered d/t time constraints Activity 3 Comment: Initiate next session:Pelvic Floor Assessment: Discussed rational, informed consent*, completion & findings explained. (*Consent for pelvic floor assessment, muscle testing and treatment: Patient received education regarding pelvic floor physical therapy assessment/treatment with use of 3D pelvic floor model for education on relevant pelvic floor anatomy. Assessment and treatment may include an external or internal (visual and/or digital/tactile) approach for assessment/treatment of perineal tissues, pelvic floor and pelvic girdle muscles. Patient provided freely given, reversible, informed, enthusiastic and specific consent for internal pelvic floor muscle assessment and treatment today. Patient understands that they have control of the assessment and treatment, having the opportunity to stop treatment at any time. Patient also provided written consent at initial evaluation. ) Therapeutic Activity 4: Bladder [id number] to work on day time urinary urgency Activity 4 Comment: Bladder Re-training: Educated patient and discussed Night time strategies, urge suppression. Discussed it takes at least 8 weeks to form a new habit and/or break an old habit. Discussed it can take 8 weeks to re-train muscles and can take 16-20 weeks to hypertrophy muscles. Discussed bladder re-training is a process involving re-programing brain>bladder connections, strengthening PF muscles and habit changes. Pt with verbal understanding and acknowledgement. Verbal & written information provided. Home Exercise Program: Created Time Entry Total Treatment Time Start Time: 803 Stop Time: 841 Time Calculation (min): 38 min PT Evaluation Time Entry PT Evaluation (Low) Time Entry: 20 PT Therapeutic Procedures Time Entry Therapeutic Activity Time Entry: 18 Reyna Wright PT documented in this encounter [facility] 03-19-2024 Telephone encount er Note Left message for patient to call office to schedule an appointment. Office number provided for return call. Peyton Doyle March 19, 2024 8:19 AM [facility] 03-19-2024 Miscellaneous Notes Formattin g of this note might be different from the original. Left message for patient to call office to schedule an appointment. Office number provided for return call. Peyton Doyle March 19, 2024 8:19 AM documented in this encounter [facility] 03-15-2024 Telephone encount er Note Images from the original note were not included. Left message for patient to call office to schedule an appointment. Office number provided for return call. Peyton Doyle March 15, 2024 1:45 PM Thurs POB Thanks, TIARAD Would you like to see this patient, let me know and I will gladly get them scheduled. Thank you, Peyton Doyle March 15, 2024 10:48 AM ----- Message from Julianna Benton sent at 03/15/2024 8:19 AM EDT ----- Regarding: Orthopedics / Elbow: Fracture Broken / Recent ED Visit Orthopedics / Elbow: Fracture Broken / Recent ED Visit Patient has been identified by name and Date of (Y/N): Y Patient: Emerald Richardson Date of : 1980 Previous Provider Seen: NA Body Part(s) Identified: Rt Elbow Diagnosis/Reason For Visit: Fracture Reason for the call/escalation: [facility], fractured on Friday03/12/24. Was not referred to a specific provider. Pt has referral in [facility] for HCAP self pay If reason for call/escalation is discharge from ED/ER or Hospital, which facility was the patient seen at: [facility] 03/13/24 Was an appointment scheduled (Y/N): n Person calling if other than patient: pt Return call to if other than patient: pt Best contact number: [phone] Thank you, Julianna Jimenez March 15, 2024 8:19 AM [facility] 03-15-2024 Miscellaneous Notes Formattin g of this note is different from the original. Images from the original note were not included. Left message for patient to call office to schedule an appointment. Office number provided for return call. Peyton Doyle March 15, 2024 1:45 PM Nell SHERIDAN Thanks, NJD Would you like to see this patient, let me know and I will gladly get them scheduled. Thank you, Peyton Doyle March 15, 2024 10:48 AM ----- Message from Julianna Benton sent at 03/15/2024 8:19 AM EDT ----- Regarding: Orthopedics / Elbow: Fracture Broken / Recent ED Visit Orthopedics / Elbow: Fracture Broken / Recent ED Visit Patient has been identified by name and Date of (Y/N): Y Patient: Emerald Richardson Date of : 1980 Previous Provider Seen: NA Body Part(s) Identified: Rt Elbow Diagnosis/Reason For Visit: Fracture Reason for the call/escalation: [facility], fractured on Friday03/12/24. Was not referred to a specific provider. Pt has referral in [facility] for HCAP self pay If reason for call/escalation is discharge from ED/ER or Hospital, which facility was the patient seen at: [facility] 03/13/24 Was an appointment scheduled (Y/N): n Person calling if other than patient: pt Return call to if other than patient: pt Best contact number: [phone] Thank you, Julianna Jimenez March 15, 2024 8:19 AM documented in this encounter [facility] Evaluation note Diagnosis Stress incontinence (female) (male) [facility] Diagnosis Stress incontinence (female) (male)- [facility] Diagnosis Stress incontinence (female) (male)- Primary [facility] Diagnosis Encounter for gynecological examination without abnormal finding- Primary Encounter for screening mammogram for malignant neoplasm of breast PCB (post coital bleeding) Postcoital bleeding Cervix abnormality [facility] noteNo assessment information availableWBrecksville [facility] Work Phone: Evaluation note* Diagnosis Cervix abnormality- Primary [facility]* Diagnosis Cervical mass- Primary Other specified noninflammatory disorder of cervix PCB (post coital bleeding) Postcoital bleeding Irregular bleeding Irregular menstrual cycle [facility]* Diagnosis Stress incontinence (female) (male)- Primary [facility] (n[facility]ative)No reason for referral information availableWBrecksville [facility] Work Phone: Reason for visit Narrative* Therapy (Routine) - Authorized Specialty Diagnoses / Procedures Referred By Contac t Referred To Contact Physical Therapy Diagnoses Stress incontinence (female) (male) Procedures NC OFFICE/OUTPATIENT [facility] 60 MINUTES Cl Hidalgo MD [address] [place] [address] Phone: tel: fax: [facility] Therapy at [address] [place] [address] Phone: tel: fax: Referral ID Status Reason Start Date Expiration Date Visits Requested Visits Authorized [id number] Authorized Eval and Treat 09/14/2024 09/09/2025 20 20 [facility] Summary Purpose Family History No Family History Records FoundNo Family History Records FoundNo Family History Records FoundNo Family History Records FoundNo Family History Records FoundNo Family History Records FoundNo Family History Records Found Advance Directives No Advanced Directives Records FoundNo Advanced Directives Records FoundNo Advanced Directives Records FoundNo Advanced Directives Records FoundNo Advanced Directives Records FoundNo Advanced Directives Records FoundNo Advanced Directives Records Found Procedure Findings Note PROCEDURE DETAILS Preoperati ve Diagnosis: Congenital pes cavus, unspecified foot, Q66.70 Other instability, right ankle, M25.371 Postoperative Diagnosis: Congenital pes cavus, unspecified foot, Q66.70 Other instability, right ankle, M25.371 Surgeon: John Arreaga Resident/Fellow/Other Software Applications Specialist: Mora Daly Procedure: 1. RIGHT ANKLE BROSTROM LIGAMENT REPAIR WITH PERONEAL LONGUS TO BREVIS TENDON TRANSFER Anesthesia: General plus popliteal block Estimated Blood Loss: 5 cc Findings: Ankle instability with anterior impingement, mild pes cavus Implants: Mini Mytec suture anchors x2 Operative Report: Patient was brought to the operating suite and placed supine on the operating table. The operative lower extremity was then sterilely prepped and aped in the usual manner below a thigh tourniquet. At the start of the case the patient received an IV antibiotic, and had a standard general anesthetic. We then did a sterile rep and drape of the operative extremity, then exsanguin (more content not included)... Note Discharge Summary PHYSICAL T HERAPY Referral/Discharge Information: Date of Discharge: 09/14/2020 Date of Last Visit: 07/17/2019 Date of Evaluation: 07/17/2019 Number of Attended Visits: 1 Referred by: Dr. Arreaga Referred for: Right ankle pain s/p Brostrom Problems/Issues Addressed: Presented with right ankle pain, decreased range of motion, impaired balance and increased difficulty with ADLs. Status at Discharge: Patient only seen for initial evaluation. Reason for Discharge: Failed to schedule and/or to keep follow-up appointment(s). Signatures Electronically signed by : Clint Shin PT DPT; Sep 14 2020 9:59AM EST (Author) Hospital Course Note Discharge Summary PHYSICAL T HERAPY Referral/Discharge Information: Date of Discharge: 09/14/2020 Date of Last Visit: 07/17/2019 Date of Evaluation: 07/17/2019 Number of Attended Visits: 1 Referred by: Dr. Arreaga Referred for: Right ankle pain s/p Brostrom Problems/Issues Addressed: Presented with right ankle pain, decreased range of motion, impaired balance and increased difficulty with ADLs. Status at Discharge: Patient only seen for initial evaluation. Reason for Discharge: Failed to schedule and/or to keep follow-up appointment(s). Signatures Electronically signed by : Clint Shin PT DPT; Sep 14 2020 9:59AM EST (Author) Chief Complaint and Reason for Visit Chief Complaint Admit Date SCREENING November 02, 2024 3:17p m Additional Source Comments INFORMATION SOURCE (unrecogn ized section and content) DATE CREATED AUTHOR 07/13/2020 [facility] DATE CREATED AUTHOR AUTHOR'S ORGANIZ ATION 09/15/2020 [employer] DATE CREATED AUTHOR AUTHOR'S ORGANIZ ATION 02/02/2021 [facility] DATE CREATED AUTHOR AUTHOR'S ORGANIZ ATION 03/20/2024 [facility] DATE CREATED AUTHOR AUTHOR'S ORGANIZ ATION 09/15/2024 [facility] DATE CREATED AUTHOR AUTHOR'S ORGANIZ ATION 12/14/2024 [facility] DATE CREATED AUTHOR AUTHOR'S ORGANIZ ATION 12/14/2024 [facility] Source Comments (unrecognize d section and content) In the event this informatio n is protected by the Federal Confidentiality of Alcohol and Drug Abuse Patient Records regulations: The Federal rules restrict any use of the information to criminally investigate or prosecute any alcohol or drug abuse patient.[facility] the event this information is protected by the Federal Confidentiality of Alcohol and Drug Abuse Patient Records regulations: The Federal rules restrict any use of the information to criminally investigate or prosecute any alcohol or drug abuse patient.[facility] Reason for Visit (unrecogniz ed section and content) Reason Comments Appointment Reason Comments Annual Exam Reason Comments Procedure Cervical Bx Reason Comments Surgical Consult Reason Onset Date Comments Surgery Scheduling 12/08/2024 Reason Onset Date Comments Surgery Scheduling 12/14/2024 Care Teams (unrecognized sec tion and content) Salesperson Handbags Relationship Specialty Start Date End Date Cl Hidalgo MD [address] [place] [phone] PCP - General Family Medicine 09/14/24 Salesperson Handbags Relationship Specialty Start Date End Date Cl Hidalgo MD [address] [place] [phone] PCP - General Family Medicine 09/14/24 Salesperson Handbags Relationship Specialty Start Date End Date Cl Hidalgo MD [address] [place] [phone] PCP - General Family Medicine 09/14/24 Salesperson Handbags Relationship Specialty Start Date End Date Cl Hidalgo MD [address] [place] [phone] PCP - General Family Medicine 09/14/24 Team Status: Active Member Role Status Dates Dr. Cl Hidalgo MD Primary Care Provider Active Team Status: Inactive Member Role Status Dates Dr. Cl Hidalgo MD Primary Care Provider Active Start: November 02, 2024 End: November 02, 2024 Dr. Cl Hidalgo MD Attending Provider Active Start: November 02, 2024 End: November 02, 2024 Dr. Cl Hidalgo MD Referring Provider Active Start: November 02, 2024 End: November 02, 2024 Salesperson Handbags Relationship Specialty Start Date End Date Cl Hidalgo MD [address] [place], [place] [phone] PCP - General Family Medicine 09/14/24 Salesperson Handbags Relationship Specialty Start Date End Date Cl Hidalgo MD [address] [place] [phone] PCP - General Family Medicine 09/14/24 Salesperson Handbags Relationship Specialty Start Date End Date Cl Hidalgo MD [address] [place] [phone] PCP - General Family Medicine 09/14/24 Salesperson Handbags Relationship Specialty Start Date End Date Cl Hidalgo MD [address] [place], [place] [phone] PCP - General Family Medicine 09/14/24 Goals (unrecognized section and content) Goals may be documented in a n alternate section FOR RECORDS PERTAINING TO PATIENTS WHO ARE OR HAVE BEEN ENROLLED IN A CHEMICAL DEPENDENCY/SUBSTANCEABUSE PROGRAM, SOME INFORMATION MAY BE OMITTED. This clinical summary was aggregated from multiple sources. Caution should be exercised in using it in the provision of clinical care. This summary normalizes information from multiple sources, and as a consequence, information in this document may materially change the coding, format and clinical context of patient data. In addition, data may be omitted in some cases. CLINICAL DECISIONS SHOULD BE BASED ON THE PRIMARY CLINICAL RECORDS. [employer] [facility]. provides no warranty or guarantee of the accuracy or completeness of information in this document.
[2024-12-15 07:21] LABS: Internal QC Validated? YES +Cl - CLEAR BKGD; Pregnancy, Urine Negative Negative; Record Kit Lot#,Urine Preg 947241
[2024-12-15] MEDS: Lactated Ringers 1,000 ML 15 ML IV (07:31)
--- NOTE | 2024-12-15 07:33 | H&P.OPEN ---
HPI - General General Date of Service: 12/15/24 HPI Narrative KRISTINA FUNEZ, is a 44 F who presents for screening colonoscopy. Patient never had a colonoscopy. Patient denies any family history of colon cancer. Patient denies any chronic abdominal pain/nausea/vomiting/reflux. Patient has bowel movements daily denies any blood. PFSH Medical History Non-smoker Allergy/AdvReac Type Severity Reaction Status Date / Time Sulfa (Sulfonamide Allergy Intermediate Hives Verified 12/15/24 07:23 Antibiotics) Surgical History (Updated 12/13/24 @ 14:29 by Regina Demarco) History of ankle surgery (~2019) Social History Smoking Status: Never smoker Past Medical/Surgical History Planned Operation Planned Operative Procedure(s): cscope Previous Hospitalizations/Surgeries HX Hospitalizations: No Any Problems With Anesthesia: No You/Your Family Experience Fever (Hyperthermia) With Anes: No Cholinesterase deficiency: No Cardiovascular Hx Hypertension: No Respiratory Hx Sleep Apnea: No Hx Respiratory Tract Infection/Cold (presently): No Do You Snore Loudly (louder than talking or can be heard): No Do You Often Feel Tired/ Fatigued/ Sleepy Dring Daytime?: No Has Anyone Observed You Stop Breathing During Sleep?: No Result (for STOP score): Negative Smoking Status: Never smoker Neurological Does patient have nerve stimulator: No Reproduction : No Miscellaneous Recent Exposure to Contagious Disease: No Allergies Sulfa (Sulfonamide Antibiotics) Allergy (Intermediate, Verified 12/15/24 07:23) Hives Discharge Is Pt Admitted From a Shelter, or a Care Home: No After D/C, Where Do you Plan to Go: Return Home Vital Signs Vital Signs Vital Signs: 12/15/24 07:24 12/15/24 07:24 Temperature 97.0 F L Temperature Source Temporal Pulse Rate 60 Respiratory Rate 16 Respiratory Pattern Normal Blood Pressure 110/75 Blood Pressure Mean 86 Blood Pressure Source Monitor Blood Pressure Position Semi-Fowlers Blood Pressure Location Left Arm Pulse Ox 100 Oxygen Delivery Method Room Air Weight Weight: 134 lb 7.712 oz Body Mass Index (BMI) 21.7 Physical Exam Const alert, oriented x3 and no apparent distress HEENT normocephalic and head/scalp atraumatic Resp normal respiratory effort Cardio regular rate GI soft to palpation and non-tender; Negative for non-distended Palpation: Negative for guarding Extremity no clubbing, cyanosis or edema Skin no rashes or lesions noted Neuro CN's II-XII intact bilaterally Psych mental status grossly normal Assessment & Plan Assessment/Plan (1) Screening for colon cancer: Surgery Risks - Colonoscopy I discussed with the patient the risks of the procedure: Yes Risks Include but are not Limited To: Risks include but are not limited to: Bleeding, perforation requiring further surgery, inability to complete colonoscopy requiring barium enema.
--- NOTE | 2024-12-15 07:37 | PRE.ANES_ITS ---
ASA Classification* ASA Classification ASA Classification: 1 Assessment & Plan Anesthesia* Anesthesia Assessment Anesthesia Assessment: Discussed sedation and/or anesthesia options, risks, benefits, and alternatives with patient/parents/legal guardian/POA. Questions invited. The patient/parents/legal guardian/POA seems to understand and agrees to proceed with anesthesia plan. Reviewed the physical assessment, medical history, allergy history and patient home medications list prior to surgery/procedure/anesthetic and documented any changes. Performed airway and anesthesia risk assessments. Anesthesia Type Anesthesia Type: MAC History Source History Obtained from:: Patient and Chart Anesthesia Focused Assessment* Temperature: 97.0 F Pulse Rate: 60 Blood Pressure: 110/75 Respiratory Rate: 16 Pulse Ox: 100 Oxygen Delivery Method: Room Air Airway Assessment Mouth opens: >3 cm Mallampati Score: II Teeth Condition: Intact Neck Range of motion (ROM): Full ROM Labs Anesthesia Preop lab: CBC CHEMISTRY COAG Urine Test Negative Negative 12/15/24 07:10 12/15/24 Pre-Assessment Diagnosis/Proposed Procedure Planned Operative Procedure(s): cscope Anesthesia History Anesthesia History - is support analyst: Anesthesia History - is support analyst Hx Hospitalization No 12/15/24 07:34 Any Problems With Anesthesia No 12/15/24 07:34 Cholinesterase deficiency No 12/15/24 07:34 You/Your Family Experience No 12/15/24 07:34 fever (hyperthermia) with Relationship Recent Exposure to Contagious No 12/15/24 07:34 Disease Does patient have nerve No 12/15/24 07:34 stimulator Patient instructed to have device shut off --Does patient have Pacemaker No 12/15/24 07:24 or ICD? When Was Last Pacemaker Check QUESTION #4 FULL TEXT: You/Your Family Experience fever (hyperthermia) with Anesthesia Last Oral Intake Last Oral intake: Last Oral Intake NPO since 08:30 12/15/24 07:24 Meds taken in AM with sips of No 12/15/24 07:24 water? Meds patient instructed to take am of surgery PONV PONV - is support analyst: PONV - is support analyst Female Yes 12/13/24 14:25 HX of Motion Sickness Yes 12/13/24 14:25 HX of N/V After Surgery No 12/13/24 14:25 Non-Smoker Yes 12/13/24 14:25 Duration of Surgery greater No 12/13/24 14:25 than 60 minutes Number of Risk Factors 3 12/13/24 14:25 PONV Score Moderate Risk 12/13/24 14:25 Height & Weight Height & Weight: Anesthesia: Height & Weight Height 5 ft 6 in 12/15/24 07:24 Weight: 61 kg 12/15/24 07:24 Body Mass Index (BMI) 21.7 12/15/24 07:24 Respiratory Assessment Respiratory Assessment - is support analyst: Respiratory Tract Infection Hx - is support analyst Hx Respiratory Tract Infection No 12/15/24 07:34 STOP Sleep Apnea STOP Sleep Apnea - is support analyst: STOP Sleep Apnea - is support analyst Hx Hypertension No 12/15/24 07:34 Hx Sleep Apnea No 12/15/24 07:34 CPAP BIPAP Do you snore loudly (louder No 12/15/24 07:34 than talking or can be heard Do you often feel tired/ No 12/15/24 07:34 fatigued/ sleepy during daytime? Has anyone observed you stop No 12/15/24 07:34 breathing during sleep? STOP Results Negative 12/15/24 07:34 QUESTION #5 FULL TEXT : Do you snore loudly (louder than talking or can be heard through closed doors)? Tobacco Use History Tobacco Use History - is support analyst: Tobacco Use History - is support analyst Tobacco Use Smoking Status Never smoker 12/15/24 07:34 Hx Tobacco Use No 12/13/24 14:25 Years Smoking Packs Smoked per Day Smoking Cessation Date was within the last 15 years Hx Smoking Cessation Date Hx Smoking Cessation Counseling Hematologic Medial History Hematologic Hx - is support analyst: Hematologic Medical Hx - intermission coordinator Hx of Blood Transfusion No 12/13/24 14:25 Hx of Transfusion in last 3 No 12/13/24 14:25 Months Date of Last Transfusion (if within last 3 months) Ever experience any problems No 12/13/24 14:25 with transfusion(s)? Specify any problems Hx of Preganancy in last 3 N/A 12/13/24 14:25 Months Nurse Filling Out Transfusion NBUCHER 12/13/24 14:25 & Questions: Date: 12/13/24 12/13/24 14:25 Time: 14:25 12/13/24 14:25 Patient unable to answer at this time (ie. confused, unrespo /Reproduction History /Reproductive History - is support analyst: /Reproductive Hx- is support analyst Hx Now No 12/15/24 07:34 Gestational Age (in weeks): EDC: Hx Hx Para Hx Section SAB No 12/13/24 14:25 Active Medications Active Medications: Current Medications Generic Name Dose Route Start Last Admin Trade Name Freq PRN Reason Stop Dose Admin Lactated Ringer's 1,000 mls @ 15 mls/hr 12/15/24 07:15 12/15/24 07:31 IV 15 mls/hr .Q48H NUNO Administration PFSH Medical History Non-smoker Allergy/AdvReac Type Severity Reaction Status Date / Time Sulfa (Sulfonamide Allergy Intermediate Hives Verified 12/15/24 07:23 Antibiotics) Surgical History (Updated 12/13/24 @ 14:29 by Regina Demarco) History of ankle surgery (~2019) Social History Smoking Status: Never smoker Review of Systems (Anesthesia) ROS Narrative System reviewed and no additional complaints, except as documented. Physical Exam Const alert, oriented x3 and average body habitus Resp normal respiratory effort, normal air movement and clear to auscultation bilaterally Cardio regular rate, regular rhythm, no murmurs and diaphoretic
--- NOTE | 2024-12-15 08:44 | OP.CCLET_ITS ---
12/15/2024 Genna Hidalgo Md Re : Colonoscopy procedure for Emerald Richardson Dear Dr. Hidalgo This procedure was performed on Sunday, December 15, 2024. My impressions and recommendations are as follows: Impressions : - The entire examined colon is normal on direct and retroflexion views. - No specimens collected. Recommendations : - Discharge patient to home. - Resume previous diet. - Continue present medications. - Repeat colonoscopy in 10 years for screening purposes. My findings are described in the full procedure note, which is enclosed. If I can be of further assistance, please feel free to contact me at Doctor phone number(s): , Work: . Sincerely, MD Blanca Gonzalez MD 12/15/2024 8:44:09 AM This report has been signed electronically.
--- NOTE | 2024-12-15 08:44 | OP.COLON_ITS ---
Patient Name: Emerald Richardson Procedure Date: 12/15/2024 8:06 AM Date of : 1980 Age: 44 Procedure: Colonoscopy Indications: Screening for colorectal malignant neoplasm Providers: Blanca Sinclair MD Referring MD: Genna Hidalgo Md Medicines: Monitored Anesthesia Care Patient Profile: This is a 44 year old female. Last Colonoscopy: none. The patient's first colonoscopy is today. Complications: No immediate complications. Procedure: Pre-Anesthesia Assessment: - Prior to the procedure, a History and Physical was performed, and patient medications and allergies were reviewed. The patient's tolerance of previous anesthesia was also reviewed. The risks and benefits of the procedure and the sedation options and risks were discussed with the patient. All questions were answered, and informed consent was obtained. Prior Anticoagulants: The patient has taken no anticoagulant or antiplatelet agents. ASA Grade Assessment: Per anesthesia. After reviewing the risks and benefits, the patient was deemed in satisfactory condition to undergo the procedure. After I obtained informed consent, the scope was passed under direct vision. Throughout the procedure, the patient's blood pressure, pulse, and oxygen saturations were monitored continuously. The Colonoscope was introduced through the anus and advanced to the cecum, identified by the appendiceal orifice, ileocecal valve and palpation. The colonoscopy was performed without difficulty. The patient tolerated the procedure well. The quality of the bowel preparation was good. Scope In: 8:18:24 AM Scope Withdrawal Time 0 hours 15 minutes 11 seconds Scope Out: 8:38:10 AM Total Procedure Duration Time 0 hours 19 minutes 46 seconds Findings: The perianal and digital rectal examinations were normal. The entire examined colon appeared normal on direct and retroflexion views. Impression: - The entire examined colon is normal on direct and retroflexion views. - No specimens collected. Recommendation: - Discharge patient to home. - Resume previous diet. - Continue present medications. - Repeat colonoscopy in 10 years for screening purposes. Procedure Code(s): --- Professional --- G0121, PT, Colorectal cancer screening; colonoscopy on individual not meeting criteria for high risk Diagnosis Code(s): --- Professional --- Z12.11, Encounter for screening for malignant neoplasm of colon CPT copyright 2021 [employer]. All rights reserved. The codes documented in this report are preliminary and upon medical service representative review may be revised to meet current compliance requirements. MD Blanca Gonzalez MD 12/15/2024 8:44:09 AM This report has been signed electronically. Number of Addenda: 0 Note Initiated On: 12/15/2024 8:06 AM
--- NOTE | 2024-12-15 08:46 | PCM.POST.ANE ---
Anesthesia: Postop Eval I Current Vital Signs Temperature: 97.3 F Pulse Rate: 71 Blood Pressure: 90/67 Respiratory Rate: 17 Pulse Ox: 98 Oxygen Delivery Method: Room Air Assessment Airway patent: Yes Spontaneous unlabored respirations: Yes Mental status: Awake and Calm nausea: No Vomiting: No Anesthesia Complication: No Fluid Hydration Crystalloid volume administer (ml): 700 Total IV fluid infused: 700 Progress Note Anesthesia document: Postop Eval 1 completed: Yes
--- NOTE | 2024-12-15 09:23 | POSTOPAN2_ITS ---
Anesthesia Postop Eval I Sum Postop Eval Completion status Anesthesia document: Postop Eval 1 completed: Yes Anesthesia Postop Eval I Summary Anesthesia Postop Eval I Summary: Anesthesia Postop Eval I: Assessment Summary Airway patent Yes 12/15/24 08:48 NURSING EDUCATION SPECIALIST.CSIR Spontaneous unlabored Yes 12/15/24 08:48 NURSING EDUCATION SPECIALIST.CSIR respirations Mental status Awake,Calm 12/15/24 08:48 NURSING EDUCATION SPECIALIST.CSIR nausea No 12/15/24 08:48 NURSING EDUCATION SPECIALIST.CSIR Vomiting No 12/15/24 08:48 NURSING EDUCATION SPECIALIST.CSIR Anesthesia Postop Eval I: Fluid Summary Crystalloid volume administer 700 12/15/24 08:48 NURSING EDUCATION SPECIALIST.CSIR (ml) Colloids volume administered ( ml) Blood Product volume administered (ml) Total IV fluid infused 700 12/15/24 08:48 NURSING EDUCATION SPECIALIST.CSIR Anesthesia Postop Eval I: Summary Notes Anesthesia Complication No 12/15/24 08:48 NURSING EDUCATION SPECIALIST.CSIR Anesthesia Complication Comment: Post-operative progress note Anesthesia: Postop Eval II Evaluation Mental status: Awake Pain Level: 0 nausea: No Vomiting: No
--- NOTE | 2024-12-15 09:23 | PCM.POSTANE2 ---
Anesthesia Postop Eval I Sum Postop Eval Completion status Anesthesia document: Postop Eval 1 completed: Yes Anesthesia Postop Eval I Summary Anesthesia Postop Eval I Summary: Anesthesia Postop Eval I: Assessment Summary Airway patent Yes 12/15/24 08:48 AIRWAY CONTROLLER.CSIR Spontaneous unlabored Yes 12/15/24 08:48 AIRWAY CONTROLLER.CSIR respirations Mental status Awake,Calm 12/15/24 08:48 AIRWAY CONTROLLER.CSIR nausea No 12/15/24 08:48 AIRWAY CONTROLLER.CSIR Vomiting No 12/15/24 08:48 AIRWAY CONTROLLER.CSIR Anesthesia Postop Eval I: Fluid Summary Crystalloid volume administer 700 12/15/24 08:48 AIRWAY CONTROLLER.CSIR (ml) Colloids volume administered ( ml) Blood Product volume administered (ml) Total IV fluid infused 700 12/15/24 08:48 AIRWAY CONTROLLER.CSIR Anesthesia Postop Eval I: Summary Notes Anesthesia Complication No 12/15/24 08:48 AIRWAY CONTROLLER.CSIR Anesthesia Complication Comment: Post-operative progress note Anesthesia: Postop Eval II Evaluation Mental status: Awake Pain Level: 0 nausea: No Vomiting: No
== END 2024-12-15 09:10 | disposition home or self-care (01) ==
LOC: EN 07:00 → AC 07:01
PROVIDERS: Anesthesiology; PCP Family Medicine; Referring Provider Family Medicine; Visit Provider Surgery
PROC: 0DJD8ZZ Inspection of Lower Intestinal Tract, Via Natural or Artificial Opening Endoscopic (ICD-10-PCS; CPT 45378; principal; 2024-12-15 08:10)
DX: Z12.11 Encounter for screening for malignant neoplasm of colon (principal)
CPT/HCPCS: 45378; 81025; J2405